=== PATIENT | female | born 1970 | race Caucasian/White ===

== ENCOUNTER 2017-06-18 15:16 | Observation (INO) | payer OTHER ==
[2017-06-18] MEDS ORDERED: Ondansetron 4 MG/2 ML SDV IVPUSH ONE (16:07)
[2017-06-18] MEDS ORDERED: HYDROmorphone 0.5 MG/0.5 ML Syringe IVPUSH ONE ×2 (16:07→18:25)
[2017-06-18] MEDS ORDERED: Sodium Chloride 0.9% 1,000 ML IV SCH (16:15)
[2017-06-18] MEDS ORDERED: Sodium Chloride 0.9% 10 ML Syringe FLUSH PRN (17:26)
[2017-06-18] MEDS ORDERED: Iopamidol 612 MG/ML 100 ML Bottle IV SCH (17:30)
[2017-06-18] MEDS ORDERED: Sodium Chloride 0.9% 80 ML IV SCH (17:30)
--- NOTE | 2017-06-18 18:36 | EDM.PDOC ---
ED HPI GENERAL MEDICAL PROBLEM - General Chief Complaint: Abdominal Pain Stated Complaint: R ABDOMINAL PAIN Time Seen by Provider: 06/18/17 15:40 Source of Information: Reports: Patient History Limitations: Reports: No Limitations - History of Present Illness INITIAL COMMENTS - FREE TEXT/NARRATIVE: 46-year-old female who started developing abdominal pain around 10 AM this morning, as the afternoon has gone on she feels distended, nauseated, and having increased pain. There is some radiation of pain around to her back. She had one bowel movement this morning. She is unable to have emesis because of the past Massiel procedure. She has not had pain like this in the past. She does have a history of several abdominal surgeries including a cholecystectomy, hernia repair. No fevers or chills, no shortness of breath or chest pain. She points to her periumbilical area as the source of pain. Onset: Sudden (Pain started rather suddenly around 10 AM this morning but is increased in intensity) Location: Reports: Abdomen Severity: Moderate Improves with: Reports: None Worsens with: Reports: None Associated Symptoms: Reports: Loss of Appetite, Malaise, Nausea/Vomiting. Denies: Confusion, Fever/Chills Right Abdominal Pain Score (Numeric/FACES): 5 - Related Data Allergies Allergy/AdvReac Type Severity Reaction Status Date / Time prochlorperazine Allergy Other Verified 06/18/17 15:48 [From Compazine] prochlorperazine edisylate Allergy Other Verified 06/18/17 15:48 [From Compazine] prochlorperazine maleate Allergy Other Verified 06/18/17 15:48 [From Compazine] codeine AdvReac Stomach Verified 06/18/17 15:48 Ache metoclopramide HCl AdvReac Hallucinati Verified 06/18/17 15:48 [From Reglan] ons Home Meds: Home Meds Ondansetron [Zofran ODT] 8 mg PO Q8H PRN 02/14/16 [History] Rizatriptan Benzoate [Maxalt] 5 mg PO ASDIRECTED PRN 02/14/16 [History] Albuterol [IJD: Albuterol HFA] 1 - 2 puff IH Q4H PRN 02/16/16 [History] ClonazePAM [KlonoPIN] 1 tab PO QID PRN 06/18/17 [History] DULoxetine [Cymbalta] 90 mg PO DAILY 06/18/17 [History] busPIRone HCl [busPIRone] 1 tab PO BID 06/18/17 [History] lamoTRIgine [Lamictal] 1 tab PO DAILY 06/18/17 [History] Past Medical History HEENT History: Reports: Impaired Vision Other HEENT History: wears glasses Cardiovascular History: Reports: High Cholesterol Respiratory History: Reports: Asthma Gastrointestinal History: Reports: GERD, Hiatal Hernia Genitourinary History: Reports: Other (See Below) Other Genitourinary History: IC bladder [employer] History: Reports: , Prolapsed Uterus Musculoskeletal History: Reports: Fracture Neurological History: Reports: Migraines Psychiatric History: Reports: Anxiety, Depression Dermatologic History: Reports: Other (See Below) Other Dermatologic History: rosacea - Infectious Disease History Infectious Disease History: Reports: Chicken Pox, Shingles - Past Surgical History HEENT Surgical History: Reports: Oral Surgery GI Surgical History: Reports: Cholecystectomy, Colonoscopy, EGD, Hernia Repair/ Other, Massiel Fundoplication Female Surgical History: Reports: Hysterectomy Social & Family History - Family History Family Medical History: Noncontributory - Tobacco Use Smoking Status *Q: Heavy Tobacco Smoker Years of Tobacco use: 15 Packs/Tins Daily: 1 Used Tobacco, but Quit: No Month Tobacco Last Used: Second Hand Smoke Exposure: No - Recreational Drug Use Recreational Drug Use: No ED ROS GENERAL - Review of Systems Review Of Systems: See Below Constitutional: Reports: Malaise. Denies: Fever, Chills HEENT: Reports: No Symptoms Respiratory: Denies: Shortness of Breath Cardiovascular: Denies: Chest Pain GI/Abdominal: Reports: Abdominal Pain, Decreased Appetite, Nausea. Denies: Constipation, Diarrhea, Vomiting : Reports: No Symptoms Musculoskeletal: Reports: No Symptoms Skin: Reports: No Symptoms Neurological: Reports: No Symptoms Psychiatric: Reports: No Symptoms ED EXAM, GI/ABD - Physical Exam Exam: See Below Exam Limited By: No Limitations General Appearance: Alert, No Apparent Distress (Patient appears uncomfortable but not distressed) Eyes: Bilateral: Normal Appearance (No jaundice, normal hydration) Respiratory/Chest: No Respiratory Distress, Lungs Clear Cardiovascular: Regular Rate, Rhythm GI/Abdominal Exam: Soft, Tender, Abnormal Bowel Sounds (Bowel sounds are high- pitched) Extremities: Normal Inspection. No: Pedal Edema Neurological: Alert, Oriented Course - Vital Signs Last Recorded V/S: Last Vital Signs Temp 99.7 F 06/20/17 11:17 Pulse 84 06/20/17 11:17 Resp 16 06/20/17 11:17 BP 137/83 06/20/17 11:17 Pulse Ox 97 06/20/17 11:17 - Orders/Labs/Meds Orders: Medication Orders Acetaminophen (Tylenol) 650 mg PO Q4H PRN PRN Reason: Pain (Mild 1-3)/fever Last Admin: 06/19/17 17:34 Dose: 650 mg Albuterol (Ventolin Hfa) 0 gm INH Q4H PRN PRN Reason: Shortness of Breath Buspirone HCl (Buspar) 30 mg PO BID [facility] Last Admin: 06/20/17 10:32 Dose: Not Given Admin: 06/19/17 20:34 Dose: 30 mg Admin: 06/19/17 10:13 Dose: 30 mg Admin: 06/18/17 21:08 Dose: 30 mg Clonazepam (Klonopin) 0.5 mg PO QID PRN PRN Reason: Anxiety Docusate Sodium (Colace) 100 mg PO BID PRN PRN Reason: Constipation Last Admin: 06/19/17 21:01 Dose: 100 mg Duloxetine HCl (Cymbalta) 90 mg PO DAILY [facility] Last Admin: 06/20/17 10:32 Dose: Not Given Admin: 06/19/17 10:12 Dose: 90 mg Enoxaparin Sodium (Lovenox) 40 mg SUBCUT BEDTIME [facility] Last Admin: 06/19/17 20:33 Dose: 40 mg Hydromorphone HCl (Dilaudid) 2 mg PO Q4H PRN PRN Reason: Pain Last Admin: 06/19/17 16:01 Dose: 2 mg Lamotrigine (Lamotrigine) 100 mg PO DAILY [facility] Last Admin: 06/20/17 10:32 Dose: Not Given Admin: 06/19/17 10:13 Dose: 100 mg Lorazepam (Ativan) 0.5 mg PO Q4H PRN PRN Reason: Nausea Last Admin: 06/19/17 17:34 Dose: 0.5 mg Admin: 06/19/17 11:45 Dose: 0.5 mg Ondansetron HCl (Zofran Odt) 4 mg PO Q4H PRN PRN Reason: Nausea Last Admin: 06/20/17 07:29 Dose: 4 mg Admin: 06/20/17 02:38 Dose: 4 mg Admin: 06/19/17 16:02 Dose: 4 mg Pantoprazole Sodium (Protonix) 40 mg PO ACBREAKFAST IRA Last Admin: 06/20/17 07:24 Dose: 40 mg Zolpidem Tartrate (Ambien) 5 mg PO BEDTIME PRN PRN Reason: Sleep Last Admin: 06/19/17 20:58 Dose: 5 mg Admin: 06/18/17 23:19 Dose: 5 mg Labs: Laboratory Tests 06/18/17 06/18/17 Range/Units 16:17 16:17 WBC 11.3 H (4.5-11.0) K/uL RBC 4.54 (3.30-5.50) M/uL Hgb 14.1 (12.0-15.0) g/dL Hct 41.9 (36.0-48.0) % MCV 92 (80-98) fL MCH 31 (27-31) pg MCHC 34 (32-36) % Plt Count 205 (150-400) K/uL Neut % (Auto) 66 (36-66) % Lymph % (Auto) 21 L (24-44) % Mcpherson % (Auto) 8 H (2-6) % Eos % (Auto) 4 (2-4) % Baso % (Auto) 0 (0-1) % Sodium 142 (140-148) mmol/L Potassium 4.0 (3.6-5.2) mmol/L Chloride 106 (100-108) mmol/L Carbon Dioxide 27 (21-32) mmol/L Anion Gap 9.5 (5.0-14.0) mmol/L BUN 11 (7-18) mg/dL Creatinine 1.0 (0.6-1.0) mg/dL Est Cr Clr Drug Dosing 56.78 mL/min Estimated GFR (MDRD) > 60 (>60) Glucose 108 H (74-106) mg/dL Calcium 8.7 (8.5-10.1) mg/dL Total Bilirubin 0.2 (0.2-1.0) mg/dL AST 12 L (15-37) U/L ALT 22 (12-78) U/L Alkaline Phosphatase 76 (46-116) U/L Total Protein 6.2 L (6.4-8.2) g/dL Albumin 3.4 (3.4-5.0) g/dL Globulin 2.8 (2.3-3.5) g/dL Albumin/Globulin Ratio 1.2 (1.2-2.2) Amylase 111 (25-115) U/L Lipase 479 H (73-393) U/L Meds: Medications Generic Name Dose Route Start Last Admin Trade Name Freq PRN Reason Stop Dose Admin Acetaminophen 650 mg 06/18/17 20:32 06/19/17 17:34 Tylenol PO 650 mg Q4H PRN Administration Pain (Mild 1-3)/fever Albuterol 0 gm 06/18/17 20:32 Ventolin Hfa INH Q4H PRN Shortness of Breath Buspirone HCl 30 mg 06/18/17 21:00 06/20/17 10:32 Buspar PO Not Given BID IRA Clonazepam 0.5 mg 06/18/17 20:32 Klonopin PO QID PRN Anxiety Docusate Sodium 100 mg 06/18/17 20:32 06/19/17 21:01 Colace PO 100 mg BID PRN Administration Constipation Duloxetine HCl 90 mg 06/19/17 09:00 06/20/17 10:32 Cymbalta PO Not Given DAILY IRA Enoxaparin Sodium 40 mg 06/19/17 21:00 06/19/17 20:33 Lovenox SUBCUT 40 mg BEDTIME IRA Administration Hydromorphone HCl 2 mg 06/19/17 10:54 06/19/17 16:01 Dilaudid PO 2 mg Q4H PRN Administration Pain Lamotrigine 100 mg 06/19/17 09:00 06/20/17 10:32 Lamotrigine PO Not Given DAILY IRA Lorazepam 0.5 mg 06/19/17 10:52 06/19/17 17:34 Ativan PO 0.5 mg Q4H PRN Administration Nausea Ondansetron HCl 4 mg 06/19/17 10:53 06/20/17 07:29 Zofran Odt PO 4 mg Q4H PRN Administration Nausea Pantoprazole Sodium 40 mg 06/20/17 07:30 06/20/17 07:24 Protonix PO 40 mg ACBREAKFAST IRA Administration Zolpidem Tartrate 5 mg 06/18/17 20:32 06/19/17 20:58 Ambien PO 5 mg BEDTIME PRN Administration Sleep Discontinued Medications Generic Name Dose Route Start Last Admin Trade Name Freq PRN Reason Stop Dose Admin Bisacodyl 5 mg 06/18/17 20:32 06/18/17 20:49 Dulcolax PO 06/18/17 20:33 5 mg ONETIME ONE Administration Enoxaparin Sodium 40 mg 06/18/17 20:32 06/18/17 21:10 Lovenox SUBCUT 40 mg DAILY IRA Administration Hydromorphone HCl 0.5 mg 06/18/17 16:07 06/18/17 17:16 Dilaudid IVPUSH 06/18/17 16:08 0.5 mg ONETIME ONE Administration Hydromorphone HCl 0.5 mg 06/18/17 18:25 06/18/17 18:29 Dilaudid IVPUSH 06/18/17 18:26 0.5 mg ONETIME ONE Administration Hydromorphone HCl 0 mg 06/18/17 20:32 06/18/17 20:51 Dilaudid Forging Engineer 15 Mg In Ns 30 Ml IV 15 mg ASDIRECTED PRN Administration Pain Protocol Sodium Chloride 1,000 mls @ 500 mls/hr 06/18/17 16:15 06/18/17 17:26 Normal Saline IV 500 mls/hr ASDIRECTED IRA Administration Sodium Chloride 80 mls @ 3 mls/sec 06/18/17 17:30 06/18/17 17:44 Normal Saline IV 3 mls/sec ASDIRECTED IRA Administration Sodium Chloride 1,000 mls @ 125 mls/hr 06/18/17 20:32 06/19/17 02:33 Normal Saline IV 125 mls/hr ASDIRECTED IRA Administration Influenza Virus Vaccine 1 each 06/19/17 10:00 Pharmacy To Dose - Influenza Vaccine IM 06/19/17 10:01 ONETIME ONE Influenza Virus Vaccine 60 mcg 06/19/17 10:00 06/19/17 10:00 Fluzone Quad [id number] IM 06/19/17 10:01 60 mcg .ONCE ONE Administration Iopamidol 100 ml 06/18/17 17:30 06/18/17 17:44 Isovue-300 (61%) IV 100 ml . DIRECTED IRA Administration Lorazepam 1 mg 06/18/17 20:32 06/19/17 04:14 Ativan IV 1 mg Q6H PRN Administration Nausea/Vomiting Naloxone HCl 0.4 mg 06/18/17 20:32 Narcan IVPUSH Q2M PRN Respiratory Distress Naloxone HCl 0.4 mg 06/18/17 20:32 Narcan IVPUSH Q2M PRN Respiratory Distress Ondansetron HCl 4 mg 06/18/17 16:07 06/18/17 17:16 Zofran IVPUSH 06/18/17 16:08 4 mg ONETIME ONE Administration Ondansetron HCl 4 mg 06/18/17 20:32 06/19/17 08:15 Zofran Odt PO 4 mg Q6H PRN Administration Nausea able to take PO Pantoprazole Sodium 40 mg 06/18/17 20:32 06/18/17 20:49 Protonix Iv IVPUSH 40 mg DAILY IRA Administration Pantoprazole Sodium 40 mg 06/19/17 11:30 Protonix Iv IVPUSH DAILY@1130 IRA Sodium Chloride 10 ml 06/18/17 17:26 06/18/17 17:44 Saline Flush FLUSH 10 ml ASDIRECTED PRN Administration Keep Vein Open - Re-Assessments/Exams Free Text/Narrative Re-Assessment/Exam: 06/18/17 18:42 CBC, CMP, amylase and lipase were obtained. IV was started and the patient was given 0.5 mg of IV Dilaudid and 4 mg of Zofran. 06/18/17 18:42 White blood cell count returned slightly elevated at 11.2, lipase was slightly elevated as well. All other labs were reassuring. Patient needed an additional 0.5 mg of Dilaudid IV after returning from the CT scan. A CT of the abdomen and pelvis with IV contrast was obtained to assess for bowel obstruction or pancreatitis, or other pathology. 06/18/17 18:58 CT scan returned with a generalized enteritis but no evidence of high-grade bowel obstruction. No evidence of pancreatitis or appendicitis. I think she'll have to be hospitalized tonight for hydration and pain control to see if this resolves spontaneously. Departure - Departure Time of Disposition: 20:32 Disposition: Admitted As Inpatient 68 Condition: Fair Clinical Impression: Enteritis Abdominal pain Qualifiers: Abdominal location: generalized Qualified Code(s): R10.84 - Generalized abdominal pain - Discharge Information
--- NOTE | 2017-06-18 19:48 | PCM.HP ---
H&P History of Present Illness - General Date of Service: 06/18/17 Admit Problem/Dx: Admission Diagnosis/Problem Admission Diagnosis/Problem Gastroenteritis Source of Information: Patient History Limitations: Reports: No Limitations - History of Present Illness Initial Comments - Free Text/Narative: 46-year-old female who started developing abdominal pain around 10 AM this morning, as the afternoon has gone on she feels distended, nauseated, and having increased pain. There is some radiation of pain around to her back. She had one bowel movement this morning. She is unable to have emesis because of the past Massiel procedure. She has not had pain like this in the past. She does have a history of several abdominal surgeries including a cholecystectomy, hernia repair. No fevers or chills, no shortness of breath or chest pain. She points to her periumbilical area as the source of pain. Onset: Sudden (Pain started rather suddenly around 10 AM this morning but is increased in intensity) Location: Reports: Abdomen Severity: Moderate CBC, CMP, amylase and lipase were obtained. IV was started and the patient was given 0.5 mg of IV Dilaudid and 4 mg of Zofran. White blood cell count returned slightly elevated at 11.2, lipase was slightly elevated as well. All other labs were reassuring. Patient needed an additional 0.5 mg of Dilaudid IV after returning from the CT scan. A CT of the abdomen and pelvis with IV contrast was obtained to assess for bowel obstruction or pancreatitis, or other pathology. CT scan report shows with a generalized enteritis but no evidence of high-grade bowel obstruction. No evidence of pancreatitis or appendicitis. Despite the CT scan showing no high-grade mechanical obstruction, the patient remained fairly symptomatic.Will hospitalized tonight for hydration and pain control to see if this resolves spontaneously. Onset of Symptoms: Reports: Today Symptom Onset Date: 06/18/17 Symptom Onset Time: 10:00 Duration of Symptoms: Reports: Constant, Waxing/Waning Location: Reports: Abdomen Quality: Reports: Sharp, Stabbing Severity: Severe Improves with: Reports: Medication Worsens with: Reports: None Context: Reports: Other (sudden onset of abdominal pain) Associated Symptoms: Reports: Loss of Appetite, Nausea/Vomiting Right Abdominal Pain Score (Numeric/FACES): 5 - Related Data Allergies/Adverse Reactions: Allergies Allergy/AdvReac Type Severity Reaction Status Date / Time prochlorperazine Allergy Other Verified 06/18/17 15:48 [From Compazine] prochlorperazine edisylate Allergy Other Verified 06/18/17 15:48 [From Compazine] prochlorperazine maleate Allergy Other Verified 06/18/17 15:48 [From Compazine] codeine AdvReac Stomach Verified 06/18/17 15:48 Ache metoclopramide HCl AdvReac Hallucinati Verified 06/18/17 15:48 [From Reglan] ons Home Medications: Home Meds Ondansetron [Zofran ODT] 8 mg PO Q8H PRN 02/14/16 [History] Rizatriptan Benzoate [Maxalt] 5 mg PO ASDIRECTED PRN 02/14/16 [History] Albuterol [IJD: Albuterol HFA] 1 - 2 puff IH Q4H PRN 02/16/16 [History] ClonazePAM [KlonoPIN] 1 tab PO QID PRN 06/18/17 [History] DULoxetine [Cymbalta] 90 mg PO DAILY 06/18/17 [History] busPIRone HCl [busPIRone] 1 tab PO BID 06/18/17 [History] lamoTRIgine [Lamictal] 1 tab PO DAILY 06/18/17 [History] Past Medical History HEENT History: Reports: Impaired Vision Other HEENT History: wears glasses Cardiovascular History: Reports: High Cholesterol Respiratory History: Reports: Asthma Gastrointestinal History: Reports: GERD, Hiatal Hernia Genitourinary History: Reports: Other (See Below) Other Genitourinary History: IC bladder 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: , Prolapsed Uterus Musculoskeletal History: Reports: Fracture Neurological History: Reports: Migraines Psychiatric History: Reports: Anxiety, Depression Dermatologic History: Reports: Other (See Below) Other Dermatologic History: rosacea - Infectious Disease History Infectious Disease History: Reports: Chicken Pox, Shingles - Past Surgical History HEENT Surgical History: Reports: Oral Surgery GI Surgical History: Reports: Cholecystectomy, Colonoscopy, EGD, Hernia Repair/ Other, Massiel Fundoplication Female Surgical History: Reports: Hysterectomy Social & Family History - Family History Family Medical History: Noncontributory - Tobacco Use Smoking Status *Q: Heavy Tobacco Smoker Years of Tobacco use: 15 Packs/Tins Daily: 1 Used Tobacco, but Quit: No Month Tobacco Last Used: Second Hand Smoke Exposure: No - Recreational Drug Use Recreational Drug Use: No - Living Situation & Occupation Living situation: Reports: with Significant Other Occupation: Disabled (disabled due to anxiety and depression lives with Boyfriend and his Father by [address] [place], [place].) H&P Review of Systems - Review of Systems: Review Of Systems: See Below General: Reports: Fatigue, Decreased Appetite, Other (abdominal pain with nausea ) HEENT: Reports: No Symptoms Pulmonary: Reports: No Symptoms Cardiovascular: Reports: No Symptoms Gastrointestinal: Reports: Abdominal Pain, Constipation (last bowel movement 3 days ago), Nausea (unable to vomit due to Massiel procedure) Genitourinary: Reports: No Symptoms Musculoskeletal: Reports: No Symptoms Skin: Reports: No Symptoms Psychiatric: Reports: No Symptoms Neurological: Reports: No Symptoms Hematologic/Lymphatic: Reports: No Symptoms Immunologic: Reports: No Symptoms Exam - Exam Exam: See Below - Vital Signs Vital Signs: Last Vital Signs Temp 36.6 C 06/18/17 19:27 Pulse 97 06/18/17 19:27 Resp 18 06/18/17 19:27 BP 153/72 H 06/18/17 19:27 Pulse Ox 93 L 06/18/17 19:27 Weight: 75.2 kg - Exam General: Alert, Oriented, Cooperative, Sedated HEENT: PERRLA, Hearing Intact, Mucosa Moist & [place], Nares Patent, Normal Nasal Septum, Posterior Pharynx Clear, Conjunctiva Clear, EOMI, EACs Clear, TMs Clear Neck: Supple, Trachea Midline, 2 Lungs: Clear to Auscultation, Normal Respiratory Effort Cardiovascular: Regular Rate, Regular Rhythm GI/Abdominal Exam: Soft, No Distention, No Abnormal Bruit, No Mass, Tender (low abdomen and to right , rug, rlq. no rebound or guarding) (Female) Exam: Deferred Rectal (Female) Exam: Deferred Back Exam: Normal Inspection, Full Range of Motion, NT Extremities: Normal Inspection, Normal Range of Motion, Non-Tender, No Pedal Edema, Normal Capillary Refill Skin: Warm, Dry, Intact Neurological: Cranial Nerves Intact, Reflexes Equal Bilateral Neuro Extensive - Mental Status: Alert, Oriented x3, Normal Mood/Affect, Normal Cognition Neuro Extensive - Motor, Sensory, Reflexes: CN II-XII Intact, Normal Reflexes Psychiatric: Alert, Normal Affect, Normal Mood - Patient Data Lab Results Last 24 hrs: Laboratory Results - last 24 hr 06/18/17 06/18/17 Range/Units 16:17 16:17 WBC 11.3 H (4.5-11.0) K/uL RBC 4.54 (3.30-5.50) M/uL Hgb 14.1 (12.0-15.0) g/dL Hct 41.9 (36.0-48.0) % MCV 92 (80-98) fL MCH 31 (27-31) pg MCHC 34 (32-36) % Plt Count 205 (150-400) K/uL Neut % (Auto) 66 (36-66) % Lymph % (Auto) 21 L (24-44) % [place] % (Auto) 8 H (2-6) % Eos % (Auto) 4 (2-4) % Baso % (Auto) 0 (0-1) % Sodium 142 (140-148) mmol/L Potassium 4.0 (3.6-5.2) mmol/L Chloride 106 (100-108) mmol/L Carbon Dioxide 27 (21-32) mmol/L Anion Gap 9.5 (5.0-14.0) mmol/L BUN 11 (7-18) mg/dL Creatinine 1.0 (0.6-1.0) mg/dL Est Cr Clr Drug Dosing 56.78 mL/min Estimated GFR (MDRD) > 60 (>60) Glucose 108 H (74-106) mg/dL Calcium 8.7 (8.5-10.1) mg/dL Total Bilirubin 0.2 (0.2-1.0) mg/dL AST 12 L (15-37) U/L ALT 22 (12-78) U/L Alkaline Phosphatase 76 (46-116) U/L Total Protein 6.2 L (6.4-8.2) g/dL Albumin 3.4 (3.4-5.0) g/dL Globulin 2.8 (2.3-3.5) g/dL Albumin/Globulin Ratio 1.2 (1.2-2.2) Amylase 111 (25-115) U/L Lipase 479 H (73-393) U/L Result Diagrams: 06/18/17 16:17 06/18/17 16:17 *Q Meaningful Use (ADM) - VTE *Q VTE Criteria *Q: - Stroke *Q Stroke Criteria *Q: - AMI *Q AMI Criteria *Q: - Problem List (1) Tobacco use SNOMED Code(s): 943214534 ICD Code: Z72.0 - TOBACCO USE Status: Acute Priority: High Current Visit: Yes (2) Abdominal pain SNOMED Code(s): 80647485 ICD Code: R10.9 - UNSPECIFIED ABDOMINAL PAIN Status: Acute Priority: High Current Visit: Yes Qualifiers: Abdominal location: generalized Qualified Code(s): R10.84 - Generalized abdominal pain (3) Enteritis SNOMED Code(s): 78980753 ICD Code: K52.9 - NONINFECTIVE GASTROENTERITIS AND COLITIS, UNSPECIFIED Status: Acute Priority: High Current Visit: Yes (4) Anxiety and depression SNOMED Code(s): 760223673 ICD Code: F41.8 - OTHER SPECIFIED ANXIETY DISORDERS Status: Acute Priority: Medium Current Visit: Yes Problem List Initiated/Reviewed/Updated: Yes Orders Last 24hrs: Active Orders 24 hr Category Date Time Status Patient Status Manage Transfer [TRANSFER] Routine ADT 06/18/17 19:33 Ordered Abdomen Pelvis w Cont [CT] Stat Exams 06/18/17 17:14 Taken Iopamidol [Isovue-300 (61%)] Med 06/18/17 17:30 Active 100 ml IV . DIRECTED Sodium Chloride 0.9% [Normal Saline] 1,000 ml Med 06/18/17 16:15 Active IV ASDIRECTED Sodium Chloride 0.9% [Normal Saline] 80 ml Med 06/18/17 17:30 Active IV ASDIRECTED Sodium Chloride 0.9% [Saline Flush] Med 06/18/17 17:26 Active 10 ml FLUSH ASDIRECTED PRN Resuscitation Status Routine Resus Stat 06/18/17 19:34 Ordered Medication Orders Sodium Chloride (Normal Saline) 1,000 mls @ 500 mls/hr IV ASDIRECTED IRA Last Admin: 06/18/17 17:26 Dose: 500 mls/hr Sodium Chloride (Normal Saline) 80 mls @ 3 mls/sec IV ASDIRECTED IRA Last Admin: 06/18/17 17:44 Dose: 3 mls/sec Iopamidol (Isovue-300 (61%)) 100 ml IV . DIRECTED [facility] Last Admin: 06/18/17 17:44 Dose: 100 ml Sodium Chloride (Saline Flush) 10 ml FLUSH ASDIRECTED PRN PRN Reason: Keep Vein Open Last Admin: 06/18/17 17:44 Dose: 10 ml Assessment/Plan Comment:: ASSESSMENT / PLAN -46-year-old female who started developing abdominal pain around 10 AM this morning, as the afternoon has gone on she feels distended, nauseated, and having increased pain. There is some radiation of pain around to her back. She had one bowel movement this morning. She is unable to have emesis because of the past Massiel procedure. She has not had pain like this in the past. She does have a history of several abdominal surgeries including a cholecystectomy, hernia repair. No fevers or chills, no shortness of breath or chest pain. She points to her periumbilical area as the source of pain. Onset: Sudden (Pain started rather suddenly around 10 AM this morning but is increased in intensity) Location: Reports: Abdomen Severity: Moderate CBC, CMP, amylase and lipase were obtained. IV was started and the patient was given 0.5 mg of IV Dilaudid and 4 mg of Zofran. White blood cell count returned slightly elevated at 11.2, lipase was slightly elevated as well. All other labs were reassuring. Patient needed an additional 0.5 mg of Dilaudid IV after returning from the CT scan. A CT of the abdomen and pelvis with IV contrast was obtained to assess for bowel obstruction or pancreatitis, or other pathology. CT scan report shows with a generalized enteritis but no evidence of high-grade bowel obstruction. No evidence of pancreatitis or appendicitis. Despite the CT scan showing no high-grade mechanical obstruction, the patient remained fairly symptomatic.Will hospitalized tonight for hydration and pain control to see if this resolves spontaneously. Plan Gastroenteritis, abdominal pain -Admit Observation to [address] [place] [address] for further monitoring -Lipase 479, concerns for early pancreatitis, will repeat in am. -IV fluids for rehydration NS at 125 mL per hour -abdominal pain; [employer] Dilaudid per protocol -IV Zofran every 8 hr prn -IV Protonix 40mg once -concerns for constipation, last BM 3 days ago; give Ducolax 5mg po once -Advise to notify nurses of any worsen abdominal pain or other symptoms -And a.m. labs: CBC, BMP, amylase and lipase Anxiety -order home medications without changes Tobacco use -smokes one to one and half packs per day -declines Nicotine patch -albuterol inhaler 2 puffs every 4 hours prn Maintenance issues -Orders home meds: -Nutrition: Regular diet -Torres catheter not indicated at this time -DVT: Lovenox 40mg subcut once -GI Prophalaxis;IV Protonix 40mg -spiritual consult for prayers for health CODE STATUS: Full Admission status: Admit to Observation -I expect this patient to stay less than 24 hours, not to exceed 96 hours for evaluation and management of this problem. Disposition: home with family Primary care provider: Jassi March PA-c Hospitalist: Dr. Manzo
[2017-06-18] MEDS ORDERED: Naloxone 0.4 MG/ML SDV IVPUSH PRN ×2 (20:32)
[2017-06-18] MEDS ORDERED: Enoxaparin 40 MG/0.4 ML Syringe SUBCUT SCH (20:32)
[2017-06-18] MEDS ORDERED: Bisacodyl 5 MG Tab PO ONE (20:32)
[2017-06-18] MEDS ORDERED: Acetaminophen 325 MG Tab PO PRN (20:32)
[2017-06-18] MEDS ORDERED: HYDROmorphone/Normal Saline 15 MG/30 ML PCA IV PRN (20:32)
[2017-06-18] MEDS ORDERED: Albuterol 8 GM Inhaler INH PRN (20:32)
[2017-06-18] MEDS ORDERED: Docusate Sodium 100 MG Cap PO PRN (20:32)
[2017-06-18] MEDS ORDERED: Pantoprazole 40 MG Vial IVPUSH SCH (20:32)
[2017-06-18] MEDS ORDERED: ClonazePAM 0.5 MG Tab PO PRN (20:32)
[2017-06-18] MEDS: Sodium Chloride 0.9% 1,000 ML IV SCH (20:45)
[2017-06-18] MEDS: LORazepam 2 MG/ML MDV IV PRN (20:49)
[2017-06-18] MEDS: busPIRone 10 MG Tab PO SCH (21:08)
[2017-06-18] MEDS ORDERED: FLU Vacc QS 2017-18 (36mos UP)/PF 60 MCG/0.5 ML Syringe IM ONE (21:45)
[2017-06-18] MEDS: Zolpidem 5 MG Tab PO PRN (23:19)
[2017-06-19] MEDS: Ondansetron 4 MG Tab.DIS PO PRN ×3 (01:46→16:02)
[2017-06-19] MEDS: Sodium Chloride 0.9% 1,000 ML IV SCH (02:33)
[2017-06-19] MEDS: LORazepam 2 MG/ML MDV IV PRN (04:14)
[2017-06-19] MEDS ORDERED: FLU Vacc QS 2017-18 (36mos UP)/PF 60 MCG/0.5 ML Syringe IM ONE (10:00)
[2017-06-19] MEDS: DULoxetine 30 MG Cap PO SCH (10:12)
[2017-06-19] MEDS: busPIRone 10 MG Tab PO SCH ×2 (10:13→20:34)
[2017-06-19] MEDS: lamoTRIgine 100 MG Tab PO SCH (10:13)
[2017-06-19] MEDS ORDERED: HYDROmorphone 2 MG Tab PO PRN (10:54)
--- NOTE | 2017-06-19 11:00 | PCM.PN ---
- General Info Date of Service: 06/19/17 Subjective Update: Ms. Evans is a 46-year-old woman who was admitted through the emergency department observation status last night because of nausea vomiting and abdominal pain secondary to gastroenteritis. She has been afebrile and her labs were unremarkable with stable vital signs. CT scan of the abdomen did document intestinal inflammation but no other significant abnormalities. She is been given IV fluids pain medication and antiemetic therapy, continues to have symptoms of some cramping abdominal pain with nausea. She has tolerated liquids today and has been passing a small amount of gas. - Review of Systems General: Reports: Weakness. Denies: Fever, Chills Pulmonary: Reports: No Symptoms Cardiovascular: Reports: No Symptoms Gastrointestinal: Reports: Abdominal Pain, Decreased Appetite, Flatus, Nausea. Denies: Difficulty Swallowing, Hematochezia, Melena, Vomiting Psychiatric: Reports: Anxiety - Patient Data Vitals - Most Recent: Last Vital Signs Temp 96.8 F 06/19/17 07:24 Pulse 103 H 06/19/17 07:24 Resp 14 06/19/17 07:24 BP 123/81 06/19/17 07:24 Pulse Ox 96 06/19/17 07:26 Weight - Most Recent: 165 lb 9.074 oz I&O - Last 24 Hours: Intake & Output 06/18/17 06/19/17 06/19/17 22:59 06:59 14:59 Intake Total 180 1461 Output Total 300 Balance 180 1461 -300 Lab Results Last 24 Hours: Laboratory Results - last 24 hr 06/19/17 06/19/17 06/19/17 Range/Units 04:33 04:33 04:33 WBC 8.9 (4.5-11.0) K/uL RBC 4.16 (3.30-5.50) M/uL Hgb 12.8 (12.0-15.0) g/dL Hct 39.9 (36.0-48.0) % MCV 96 (80-98) fL MCH 31 (27-31) pg MCHC 32 (32-36) % Plt Count 169 (150-400) K/uL Neut % (Auto) 65 (36-66) % Lymph % (Auto) 24 (24-44) % [place] % (Auto) 10 H (2-6) % Eos % (Auto) 2 (2-4) % Baso % (Auto) 0 (0-1) % Sodium 141 (140-148) mmol/L Potassium 4.2 (3.6-5.2) mmol/L Chloride 107 (100-108) mmol/L Carbon Dioxide 28 (21-32) mmol/L Anion Gap 6.1 (5.0-14.0) mmol/L BUN 7 (7-18) mg/dL Creatinine 0.8 (0.6-1.0) mg/dL Est Cr Clr Drug Dosing 70.98 mL/min Estimated GFR (MDRD) > 60 (>60) Glucose 131 H (74-106) mg/dL Calcium 8.0 L (8.5-10.1) mg/dL Amylase 57 (25-115) U/L Lipase 304 (73-393) U/L Med Orders - Current: Current Medications Acetaminophen (Tylenol) 650 mg PO Q4H PRN PRN Reason: Pain (Mild 1-3)/fever Albuterol (Ventolin Hfa) 0 gm INH Q4H PRN PRN Reason: Shortness of Breath Buspirone HCl (Buspar) 30 mg PO BID [facility] Last Admin: 06/19/17 10:13 Dose: 30 mg Clonazepam (Klonopin) 0.5 mg PO QID PRN PRN Reason: Anxiety Docusate Sodium (Colace) 100 mg PO BID PRN PRN Reason: Constipation Duloxetine HCl (Cymbalta) 90 mg PO DAILY [facility] Last Admin: 06/19/17 10:12 Dose: 90 mg Enoxaparin Sodium (Lovenox) 40 mg SUBCUT BEDTIME [facility] Hydromorphone HCl (Dilaudid) 2 mg PO Q4H PRN PRN Reason: Pain Lamotrigine (Lamotrigine) 100 mg PO DAILY [facility] Last Admin: 06/19/17 10:13 Dose: 100 mg Lorazepam (Ativan) 0.5 mg PO Q4H PRN PRN Reason: Nausea Ondansetron HCl (Zofran Odt) 4 mg PO Q4H PRN PRN Reason: Nausea Pantoprazole Sodium (Protonix) 40 mg PO DAILY [facility] Zolpidem Tartrate (Ambien) 5 mg PO BEDTIME PRN PRN Reason: Sleep Last Admin: 06/18/17 23:19 Dose: 5 mg Discontinued Medications Bisacodyl (Dulcolax) 5 mg PO ONETIME ONE Stop: 06/18/17 20:33 Last Admin: 06/18/17 20:49 Dose: 5 mg Enoxaparin Sodium (Lovenox) 40 mg SUBCUT DAILY [facility] Last Admin: 06/18/17 21:10 Dose: 40 mg Hydromorphone HCl (Dilaudid) 0.5 mg IVPUSH ONETIME ONE Stop: 06/18/17 16:08 Last Admin: 06/18/17 17:16 Dose: 0.5 mg Hydromorphone HCl (Dilaudid) 0.5 mg IVPUSH ONETIME ONE Stop: 06/18/17 18:26 Last Admin: 06/18/17 18:29 Dose: 0.5 mg Hydromorphone HCl (Dilaudid [employer]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 30 Ml) 0 mg IV ASDIRECTED PRN; Protocol PRN Reason: Pain Last Admin: 06/18/17 20:51 Dose: 15 mg Sodium Chloride (Normal Saline) 1,000 mls @ 500 mls/hr IV ASDIRECTED [facility] Last Admin: 06/18/17 17:26 Dose: 500 mls/hr Sodium Chloride (Normal Saline) 80 mls @ 3 mls/sec IV ASDIRECTED [facility] Last Admin: 06/18/17 17:44 Dose: 3 mls/sec Sodium Chloride (Normal Saline) 1,000 mls @ 125 mls/hr IV ASDIRECTED [facility] Last Admin: 06/19/17 02:33 Dose: 125 mls/hr Influenza Virus Vaccine (Pharmacy To Dose - Influenza Vaccine) 1 each IM ONETIME ONE Stop: 06/19/17 10:01 Influenza Virus Vaccine (Fluzone Quad 1379-4075) 60 mcg IM .ONCE ONE Stop: 06/19/17 10:01 Last Admin: 06/19/17 10:00 Dose: 60 mcg Iopamidol (Isovue-300 (61%)) 100 ml IV . DIRECTED [facility] Last Admin: 06/18/17 17:44 Dose: 100 ml Lorazepam (Ativan) 1 mg IV Q6H PRN PRN Reason: Nausea/Vomiting Last Admin: 06/19/17 04:14 Dose: 1 mg Naloxone HCl (Narcan) 0.4 mg IVPUSH Q2M PRN PRN Reason: Respiratory Distress Naloxone HCl (Narcan) 0.4 mg IVPUSH Q2M PRN PRN Reason: Respiratory Distress Ondansetron HCl (Zofran) 4 mg IVPUSH ONETIME ONE Stop: 06/18/17 16:08 Last Admin: 06/18/17 17:16 Dose: 4 mg Ondansetron HCl (Zofran Odt) 4 mg PO Q6H PRN PRN Reason: Nausea able to take PO Last Admin: 06/19/17 08:15 Dose: 4 mg Pantoprazole Sodium (Protonix Iv) 40 mg IVPUSH DAILY [facility] Last Admin: 06/18/17 20:49 Dose: 40 mg Pantoprazole Sodium (Protonix Iv) 40 mg IVPUSH DAILY@1130 IRA Sodium Chloride (Saline Flush) 10 ml FLUSH ASDIRECTED PRN PRN Reason: Keep Vein Open Last Admin: 06/18/17 17:44 Dose: 10 ml - Exam Quality Assessment: DVT Prophylaxis General: Alert, Oriented, Cooperative, Mild Distress Lungs: Clear to Auscultation, Normal Respiratory Effort Cardiovascular: Regular Rate, Regular Rhythm, No Murmurs GI/Abdominal Exam: Normal Bowel Sounds, Soft, Non-Tender, No Organomegaly, No Distention Extremities: Non-Tender, No Pedal Edema Skin: Warm, Dry - Problem List Review Problem List Initiated/Reviewed/Updated: Yes - My Orders Last 24 Hours: My Active Orders 06/19/17 10:52 LORazepam [Ativan] 0.5 mg PO Q4H PRN 06/19/17 10:53 Ondansetron [Zofran ODT] 4 mg PO Q4H PRN 06/19/17 10:54 HYDROmorphone [Dilaudid] 2 mg PO Q4H PRN Convert IV to Saline Lock [OM.PC] Routine 06/20/17 09:00 Pantoprazole [ProTONIX] 40 mg PO DAILY - Plan Plan:: ASSESSMENT / PLAN Gastroenteritis, abdominal pain-continued symptoms despite current therapy, lipase level has normalized -Saline lock IV -Pain medication and antiemetic therapy as needed -Protonix 40 mg by mouth daily -Encourage oral intake of fluids Anxiety -order home medications without changes Tobacco use -smokes one to one and half packs per day -declines Nicotine patch -albuterol inhaler 2 puffs every 4 hours prn Maintenance issues -Orders home meds: -Nutrition: Regular diet -Torres catheter not indicated at this time -DVT: Lovenox 40mg subcut once -GI Prophalaxis;IV Protonix 40mg -spiritual consult for prayers for health CODE STATUS: Full Admission status: Admit to Observation -I expect this patient to stay less than 24 hours, not to exceed 96 hours for evaluation and management of this problem. Disposition: Anticipate discharge tomorrow Primary care provider: Jassi March PA-c Hospitalist: Dr. Manzo
[2017-06-19] MEDS ORDERED: Pantoprazole 40 MG Vial IVPUSH SCH (11:30)
[2017-06-19] MEDS: LORazepam 0.5 MG Tab PO PRN ×2 (11:45→17:34)
[2017-06-19] MEDS: Zolpidem 5 MG Tab PO PRN (20:58)
[2017-06-19] MEDS ORDERED: Enoxaparin 40 MG/0.4 ML Syringe SUBCUT SCH (21:00)
[2017-06-20] MEDS: Ondansetron 4 MG Tab.DIS PO PRN ×2 (02:38→07:29)
[2017-06-20] MEDS ORDERED: Pantoprazole 40 MG Tab.CR PO SCH (07:30)
[2017-06-20] MEDS: DULoxetine 30 MG Cap PO SCH (10:32)
[2017-06-20] MEDS: busPIRone 10 MG Tab PO SCH (10:32)
[2017-06-20] MEDS: lamoTRIgine 100 MG Tab PO SCH (10:32)
[2017-06-20 11:19] VITALS: BP 137/83
--- NOTE | 2017-06-20 12:53 | PCM.DCSUM1 ---
Discharge Summary - Hospital Course Brief History: This patient is a 46-year-old woman who was admitted through the emergency department to [facility] status with generalized abdominal pain, nausea, and vomiting secondary to enteritis. - Discharge Data Discharge Date: 06/20/17 Discharge Disposition: Home, Self-Care 01 Condition: Good - Discharge Diagnosis/Problem(s) (1) Abdominal pain SNOMED Code(s): 55675279 ICD Code: R10.9 - UNSPECIFIED ABDOMINAL PAIN Status: Acute Priority: High Current Visit: Yes Qualifiers: Abdominal location: generalized Qualified Code(s): R10.84 - Generalized abdominal pain (2) Enteritis SNOMED Code(s): 07258691 ICD Code: K52.9 - NONINFECTIVE GASTROENTERITIS AND COLITIS, UNSPECIFIED Status: Acute Priority: High Current Visit: Yes - Patient Summary/Data Consults: Consultations 06/18/17 20:32 Consult to Spiritual Care [CONS] Routine Hospital Course: Ms. Evans is a 46-year-old woman who developed symptoms of abdominal pain, nausea , and vomiting on the morning of admission. Symptoms progressed through the day and she presented to the emergency department for further evaluation. Laboratory studies, showed a modest elevation in white blood cell count but otherwise were unremarkable. CT scan of the abdomen and pelvis was obtained which showed diffuse small bowel inflammation, but no other significant abnormalities. She was felt to have probable enteritis causing her current symptoms. She was admitted to the hospital and given IV fluids for hydration as well as antiemetic therapy and pain medications. By the following day she was only modestly improved and continued to experience abdominal pain and nausea. After an additional 24 hours of hospitalization she felt significantly improved with no residual abdominal pain and marked improvement in her nausea. Activity will be as tolerated and she will resume her usual diet. Follow-up appointment will be scheduled with her primary care provider within one week. - Patient Instructions Diet: Usual Diet as Tolerated Activity: As Tolerated Other/Special Instructions: Please schedule follow-up appointment with primary care provider within one week. - Discharge Plan Prescriptions/Med Rec: Ondansetron [Zofran ODT] 4 mg PO Q4H #12 tab.dis Home Medications: Home Meds Rizatriptan Benzoate [Maxalt] 5 mg PO ASDIRECTED PRN 02/14/16 [History] Albuterol [IJD: Albuterol HFA] 1 - 2 puff IH Q4H PRN 02/16/16 [History] ClonazePAM [KlonoPIN] 1 tab PO QID PRN 06/18/17 [History] DULoxetine [Cymbalta] 90 mg PO DAILY 06/18/17 [History] busPIRone HCl [busPIRone] 1 tab PO BID 06/18/17 [History] lamoTRIgine [Lamictal] 1 tab PO DAILY 06/18/17 [History] Ondansetron [Zofran ODT] 4 mg PO Q4H #12 tab.dis 06/20/17 [Rx] Referrals: Jassi March PA [Primary Care Provider] - - Patient Data Vitals - Most Recent: Last Vital Signs Temp 99.7 F 06/20/17 11:17 Pulse 84 06/20/17 11:17 Resp 16 06/20/17 11:17 BP 137/83 06/20/17 11:17 Pulse Ox 97 06/20/17 11:17 Weight - Most Recent: 165 lb 9.074 oz I&O - Last 24 hours: Intake & Output 06/19/17 06/20/17 06/20/17 22:59 06:59 14:59 Intake Total 480 180 Balance 480 180 Med Orders - Current: Current Medications Acetaminophen (Tylenol) 650 mg PO Q4H PRN PRN Reason: Pain (Mild 1-3)/fever Last Admin: 06/19/17 17:34 Dose: 650 mg Albuterol (Ventolin Hfa) 0 gm INH Q4H PRN PRN Reason: Shortness of Breath Buspirone HCl (Buspar) 30 mg PO BID [facility] Last Admin: 06/20/17 10:32 Dose: Not Given Clonazepam (Klonopin) 0.5 mg PO QID PRN PRN Reason: Anxiety Docusate Sodium (Colace) 100 mg PO BID PRN PRN Reason: Constipation Last Admin: 06/19/17 21:01 Dose: 100 mg Duloxetine HCl (Cymbalta) 90 mg PO DAILY [facility] Last Admin: 06/20/17 10:32 Dose: Not Given Enoxaparin Sodium (Lovenox) 40 mg SUBCUT BEDTIME [facility] Last Admin: 06/19/17 20:33 Dose: 40 mg Hydromorphone HCl (Dilaudid) 2 mg PO Q4H PRN PRN Reason: Pain Last Admin: 06/19/17 16:01 Dose: 2 mg Lamotrigine (Lamotrigine) 100 mg PO DAILY [facility] Last Admin: 06/20/17 10:32 Dose: Not Given Lorazepam (Ativan) 0.5 mg PO Q4H PRN PRN Reason: Nausea Last Admin: 06/19/17 17:34 Dose: 0.5 mg Ondansetron HCl (Zofran Odt) 4 mg PO Q4H PRN PRN Reason: Nausea Last Admin: 06/20/17 07:29 Dose: 4 mg Pantoprazole Sodium (Protonix) 40 mg PO ACBREAKFAST [facility] Last Admin: 06/20/17 07:24 Dose: 40 mg Zolpidem Tartrate (Ambien) 5 mg PO BEDTIME PRN PRN Reason: Sleep Last Admin: 06/19/17 20:58 Dose: 5 mg Discontinued Medications Bisacodyl (Dulcolax) 5 mg PO ONETIME ONE Stop: 06/18/17 20:33 Last Admin: 06/18/17 20:49 Dose: 5 mg Enoxaparin Sodium (Lovenox) 40 mg SUBCUT DAILY [facility] Last Admin: 06/18/17 21:10 Dose: 40 mg Hydromorphone HCl (Dilaudid) 0.5 mg IVPUSH ONETIME ONE Stop: 06/18/17 16:08 Last Admin: 06/18/17 17:16 Dose: 0.5 mg Hydromorphone HCl (Dilaudid) 0.5 mg IVPUSH ONETIME ONE Stop: 06/18/17 18:26 Last Admin: 06/18/17 18:29 Dose: 0.5 mg Hydromorphone HCl (Dilaudid Intake Man 15 Mg In Ns 30 Ml) 0 mg IV ASDIRECTED PRN; Protocol PRN Reason: Pain Last Admin: 06/18/17 20:51 Dose: 15 mg Sodium Chloride (Normal Saline) 1,000 mls @ 500 mls/hr IV ASDIRECTED IRA Last Admin: 06/18/17 17:26 Dose: 500 mls/hr Sodium Chloride (Normal Saline) 80 mls @ 3 mls/sec IV ASDIRECTED IRA Last Admin: 06/18/17 17:44 Dose: 3 mls/sec Sodium Chloride (Normal Saline) 1,000 mls @ 125 mls/hr IV ASDIRECTED [facility] Last Admin: 06/19/17 02:33 Dose: 125 mls/hr Influenza Virus Vaccine (Pharmacy To Dose - Influenza Vaccine) 1 each IM ONETIME ONE Stop: 06/19/17 10:01 Influenza Virus Vaccine (Fluzone Quad [id number]) 60 mcg IM .ONCE ONE Stop: 06/19/17 10:01 Last Admin: 06/19/17 10:00 Dose: 60 mcg Iopamidol (Isovue-300 (61%)) 100 ml IV . DIRECTED [facility] Last Admin: 06/18/17 17:44 Dose: 100 ml Lorazepam (Ativan) 1 mg IV Q6H PRN PRN Reason: Nausea/Vomiting Last Admin: 06/19/17 04:14 Dose: 1 mg Naloxone HCl (Narcan) 0.4 mg IVPUSH Q2M PRN PRN Reason: Respiratory Distress Naloxone HCl (Narcan) 0.4 mg IVPUSH Q2M PRN PRN Reason: Respiratory Distress Ondansetron HCl (Zofran) 4 mg IVPUSH ONETIME ONE Stop: 06/18/17 16:08 Last Admin: 06/18/17 17:16 Dose: 4 mg Ondansetron HCl (Zofran Odt) 4 mg PO Q6H PRN PRN Reason: Nausea able to take PO Last Admin: 06/19/17 08:15 Dose: 4 mg Pantoprazole Sodium (Protonix Iv) 40 mg IVPUSH DAILY [facility] Last Admin: 06/18/17 20:49 Dose: 40 mg Pantoprazole Sodium (Protonix Iv) 40 mg IVPUSH DAILY@1130 [facility] Sodium Chloride (Saline Flush) 10 ml FLUSH ASDIRECTED PRN PRN Reason: Keep Vein Open Last Admin: 06/18/17 17:44 Dose: 10 ml *Q Meaningful Use (DIS) - VTE *Q VTE Criteria *Q: - Stroke *Q Stroke Criteria *Q: - AMI *Q AMI Criteria *Q:
== END 2017-06-20 13:26 | disposition home or self-care (01) ==
LOC: JP.ED 15:16 → JP.MS 19:33
PROVIDERS: ADMIT Hospitalist; ATTEND Hospitalist
DX: K52.9 Noninfective gastroenteritis and colitis, unspecified (principal); R10.84 Generalized abdominal pain; E78.00 Pure hypercholesterolemia, unspecified; J45.909 Unspecified asthma, uncomplicated; K21.9 Gastro-esophageal reflux disease without esophagitis; F41.8 Other specified anxiety disorders; Z88.8 Allergy status to other drugs, medicaments and biological substances; Z79.899 Other long term (current) drug therapy; Z90.49 Acquired absence of other specified parts of digestive tract; Z90.710 Acquired absence of both cervix and uterus; Z72.0 Tobacco use
CPT/HCPCS: 36415; 74177; 80048; 80053; 82150; 83690; 85025; 96361; 96374; 96375; 96376; 99285; A9270; C9113; J1170; J1650; J2060; J2405; J7030; J7040; J7050; Q9967; 90686; 96372; G0008; G0378

== ENCOUNTER 2017-10-23 09:31 | Emergency (ER) | payer OTHER ==
[2017-10-23 09:49] VITALS: BP 144/87
--- NOTE | 2017-10-23 10:08 | EDM.PDOC ---
ED HPI GENERAL MEDICAL PROBLEM - General Chief Complaint: Gastrointestinal Problem Stated Complaint: ABDOMINAL PAIN Time Seen by Provider: 10/23/17 10:08 Source of Information: Reports: Patient History Limitations: Reports: No Limitations - History of Present Illness INITIAL COMMENTS - FREE TEXT/NARRATIVE: pt has had diarrhea for 1.5 weeks. She has about 4 stools per day and she has been nauseated but can,t vomit because has had a alessia. She has not noted blood in the stols and she has not robert on recent antibiotics. She has had pain in the upper abdoman. Onset: Gradual, Other ( pain in the past 2-3 days. ) Duration: Day(s):, Other (pt has had sig diarrhea. ) Location: Reports: Abdomen Abdomen Pain Score (Numeric/FACES): 6 - Related Data Allergies Allergy/AdvReac Type Severity Reaction Status Date / Time prochlorperazine maleate Allergy Other Verified 10/23/17 09:49 [From Compazine] codeine AdvReac Stomach Verified 10/23/17 09:49 Ache metoclopramide HCl AdvReac Hallucinati Verified 10/23/17 09:49 [From Reglan] ons Home Meds: Home Meds Rizatriptan Benzoate [Maxalt] 5 mg PO ASDIRECTED PRN 02/14/16 [History] Albuterol [IJD: Albuterol HFA] 1 - 2 puff IH Q4H PRN 02/16/16 [History] ClonazePAM [KlonoPIN] 1 tab PO BID PRN 06/18/17 [History] busPIRone HCl [busPIRone] 1 tab PO BID 06/18/17 [History] Escitalopram [Lexapro] 20 mg PO DAILY 10/23/17 [History] Ondansetron [Zofran ODT] 8 mg PO Q4H PRN 10/23/17 [History] Past Medical History HEENT History: Reports: Impaired Vision Other HEENT History: wears glasses Cardiovascular History: Reports: High Cholesterol Respiratory History: Reports: Asthma Gastrointestinal History: Reports: GERD, Hiatal Hernia Genitourinary History: Reports: Other (See Below) Other Genitourinary History: IC bladder [employer] History: Reports: , Prolapsed Uterus Musculoskeletal History: Reports: Fracture Other Musculoskeletal History: hx tibia on rt leg and nose fractures Neurological History: Reports: Migraines Psychiatric History: Reports: Anxiety, Depression Endocrine/Metabolic History: Reports: Obesity/BMI 30+ Dermatologic History: Reports: Other (See Below) Other Dermatologic History: rosacea - Infectious Disease History Infectious Disease History: Reports: Chicken Pox, Shingles - Past Surgical History HEENT Surgical History: Reports: Oral Surgery GI Surgical History: Reports: Cholecystectomy, Colonoscopy, EGD, Hernia Repair/ Other, Massiel Fundoplication Female Surgical History: Reports: Hysterectomy Social & Family History - Family History Family Medical History: Noncontributory - Tobacco Use Smoking Status *Q: Heavy Tobacco Smoker Years of Tobacco use: 15 Packs/Tins Daily: 1 Used Tobacco, but Quit: No Month/Year Tobacco Last Used: Second Hand Smoke Exposure: No - Caffeine Use Caffeine Use: Reports: Soda - Recreational Drug Use Recreational Drug Use: No - Living Situation & Occupation Living situation: Reports: with Significant Other Occupation: Disabled (disabled due to anxiety and depression lives with Boyfriend and his Father by [place], [place].) ED ROS GENERAL - Review of Systems Review Of Systems: See Below Constitutional: Reports: No Symptoms HEENT: Reports: No Symptoms Respiratory: Reports: No Symptoms Cardiovascular: Reports: No Symptoms Endocrine: Reports: No Symptoms GI/Abdominal: Reports: Abdominal Pain, Diarrhea, Decreased Appetite, Nausea : Reports: No Symptoms Musculoskeletal: Reports: No Symptoms Skin: Reports: No Symptoms Neurological: Reports: No Symptoms ED EXAM, GI/ABD - Physical Exam Exam: See Below Text/Narrative:: pt arrived with pain in upper abdoman. She has had diarrhea for the past 1.5 weeks. Exam Limited By: No Limitations General Appearance: Alert, Mild Distress Ears: Normal TMs Nose: Normal Inspection Throat/Mouth: Normal Inspection Head: Atraumatic Neck: Normal Inspection Respiratory/Chest: No Respiratory Distress Cardiovascular: Regular Rate, Rhythm GI/Abdominal Exam: Other ( tender in the upper abdoman. She does have 2 small hernias. ) (Female) Exam: Deferred Rectal (Female) Exam: Deferred Back Exam: Normal Inspection Extremities: Normal Inspection Neurological: Alert, Oriented, Normal Cognition Psychiatric: Normal Affect Course - Vital Signs Last Recorded V/S: Last Vital Signs Temp 36.7 C 10/23/17 09:46 Pulse 83 10/23/17 09:46 Resp 14 10/23/17 09:46 BP 144/87 H 10/23/17 09:46 Pulse Ox 97 10/23/17 09:46 - Orders/Labs/Meds Orders: Active Orders 24 hr Category Date Time Status CLOSTRIDIUM DIFFICILE BY PCR [RM] Stat Lab 10/23/17 10:33 Ordered UA W/MICROSCOPIC [URIN] Urgent Lab 10/23/17 10:16 Ordered Iopamidol [Isovue-300 (61%)] Med 10/23/17 11:36 Active 100 ml IV . DIRECTED PRN Sodium Chloride 0.9% [Normal Saline] 1,000 ml Med 10/23/17 10:15 Active IV ASDIRECTED Sodium Chloride 0.9% [Normal Saline] 80 ml Med 10/23/17 11:45 Active IV ASDIRECTED Medication Orders Sodium Chloride (Normal Saline) 1,000 mls @ 999 mls/hr IV ASDIRECTED IRA Last Admin: 10/23/17 10:23 Dose: 999 mls/hr Sodium Chloride (Normal Saline) 80 mls @ 3.5 mls/sec IV ASDIRECTED [facility] Last Admin: 10/23/17 11:48 Dose: 3.5 mls/sec Iopamidol (Isovue-300 (61%)) 100 ml IV . DIRECTED PRN PRN Reason: RADIOLOGY EXAM Stop: 10/24/17 11:37 Last Admin: 10/23/17 11:48 Dose: 100 ml Labs: Laboratory Tests 10/23/17 10/23/17 10/23/17 Range/Units 10:16 10:17 10:17 WBC 5.5 (4.5-11.0) K/uL RBC 4.46 (3.30-5.50) M/uL Hgb 13.7 (12.0-15.0) g/dL Hct 41.0 (36.0-48.0) % MCV 92 (80-98) fL MCH 31 (27-31) pg MCHC 33 (32-36) % Plt Count 211 (150-400) K/uL Neut % (Auto) 57 (36-66) % Lymph % (Auto) 28 (24-44) % [place] % (Auto) 7 H (2-6) % Eos % (Auto) 7 H (2-4) % Baso % (Auto) 1 (0-1) % Sodium 140 (140-148) mmol/L Potassium 4.1 (3.6-5.2) mmol/L Chloride 104 (100-108) mmol/L Carbon Dioxide 28 (21-32) mmol/L Anion Gap 7.6 (5.0-14.0) mmol/L BUN 11 D (7-18) mg/dL Creatinine 1.1 H (0.6-1.0) mg/dL Est Cr Clr Drug Dosing 51.08 mL/min Estimated GFR (MDRD) 54 L (>60) Glucose 94 (74-106) mg/dL Calcium 8.4 L (8.5-10.1) mg/dL Total Bilirubin 0.3 (0.2-1.0) mg/dL AST 216 H D (15-37) U/L ALT 248 H (12-78) U/L Alkaline Phosphatase 183 H D (46-116) U/L C-Reactive Protein 0.57 H (0.0-0.3) mg/dL Total Protein 6.3 L (6.4-8.2) g/dL Albumin 3.3 L (3.4-5.0) g/dL Globulin 3.0 (2.3-3.5) g/dL Albumin/Globulin Ratio 1.1 L (1.2-2.2) Lipase (73-393) U/L Urine Color Yellow Urine Appearance Slightly cloudy Urine pH 6.0 (4.5-8.0) Ur Specific [place] 1.020 (1.008-1.030) Urine Protein Negative (NEGATIVE) mg/dL Urine Glucose (UA) Normal (NEGATIVE) mg/dL Urine Ketones Negative (NEGATIVE) mg/dL Urine Occult Blood Negative (NEGATIVE) Urine Nitrite Negative (NEGATIVE) Urine Bilirubin Negative (NEGATIVE) Urine Urobilinogen Normal (NORMAL) mg/dL Ur Leukocyte Esterase Negative (NEGATIVE) Urine RBC 0-5 (0-5) Urine WBC Not seen (0-5) Ur Epithelial Cells Many Amorphous Sediment Not seen Urine Bacteria Rare Urine Mucus Rare 10/23/17 Range/Units 10:17 WBC (4.5-11.0) K/uL RBC (3.30-5.50) M/uL Hgb (12.0-15.0) g/dL Hct (36.0-48.0) % MCV (80-98) fL MCH (27-31) pg MCHC (32-36) % Plt Count (150-400) K/uL Neut % (Auto) (36-66) % Lymph % (Auto) (24-44) % [place] % (Auto) (2-6) % Eos % (Auto) (2-4) % Baso % (Auto) (0-1) % Sodium (140-148) mmol/L Potassium (3.6-5.2) mmol/L Chloride (100-108) mmol/L Carbon Dioxide (21-32) mmol/L Anion Gap (5.0-14.0) mmol/L BUN (7-18) mg/dL Creatinine (0.6-1.0) mg/dL Est Cr Clr Drug Dosing mL/min Estimated GFR (MDRD) (>60) Glucose (74-106) mg/dL Calcium (8.5-10.1) mg/dL Total Bilirubin (0.2-1.0) mg/dL AST (15-37) U/L ALT (12-78) U/L Alkaline Phosphatase (46-116) U/L C-Reactive Protein (0.0-0.3) mg/dL Total Protein (6.4-8.2) g/dL Albumin (3.4-5.0) g/dL Globulin (2.3-3.5) g/dL Albumin/Globulin Ratio (1.2-2.2) Lipase 157 (73-393) U/L Urine Color Urine Appearance Urine pH (4.5-8.0) Ur Specific [place] (1.008-1.030) Urine Protein (NEGATIVE) mg/dL Urine Glucose (UA) (NEGATIVE) mg/dL Urine Ketones (NEGATIVE) mg/dL Urine Occult Blood (NEGATIVE) Urine Nitrite (NEGATIVE) Urine Bilirubin (NEGATIVE) Urine Urobilinogen (NORMAL) mg/dL Ur Leukocyte Esterase (NEGATIVE) Urine RBC (0-5) Urine WBC (0-5) Ur Epithelial Cells Amorphous Sediment Urine Bacteria Urine Mucus Meds: Medications Generic Name Dose Route Start Last Admin Trade Name Freq PRN Reason Stop Dose Admin Sodium Chloride 1,000 mls @ 999 mls/hr 10/23/17 10:15 10/23/17 10:23 Normal Saline IV 999 mls/hr ASDIRECTED IRA Administration Sodium Chloride 80 mls @ 3.5 mls/sec 10/23/17 11:45 10/23/17 11:48 Normal Saline IV 3.5 mls/sec ASDIRECTED IRA Administration Iopamidol 100 ml 10/23/17 11:36 10/23/17 11:48 Isovue-300 (61%) IV 10/24/17 11:37 100 ml . DIRECTED PRN Administration RADIOLOGY EXAM Discontinued Medications Generic Name Dose Route Start Last Admin Trade Name Arun PRN Reason Stop Dose Admin Hydromorphone HCl 0.5 mg 10/23/17 10:43 10/23/17 10:48 Dilaudid IVPUSH 10/23/17 10:44 0.5 mg ONETIME ONE Administration Ketorolac Tromethamine 30 mg 10/23/17 12:15 10/23/17 12:27 Toradol IVPUSH 10/23/17 12:16 30 mg ONETIME ONE Administration Ondansetron HCl 4 mg 10/23/17 10:43 10/23/17 10:49 Zofran IVPUSH 10/23/17 10:44 4 mg ONETIME ONE Administration - Re-Assessments/Exams Free Text/Narrative Re-Assessment/Exam: 10/23/17 12:35 Pt was found to have elvated liver enzymes. She does not give a history of excessive etoh use. She had an US of the common duct which was not wide and no stones present. She had a cat scan of the abdoman which did not show acute findings. She did not have any stools during the time she was here. Her wbc was normal. Departure - Departure Time of Disposition: 12:37 Disposition: Home, Self-Care 01 Condition: Fair Clinical Impression: Elevated liver enzymes, Diarrhea Abdominal pain Qualifiers: Abdominal location: generalized Qualified Code(s): R10.84 - Generalized abdominal pain - Discharge Information Referrals: Jassi March PA [Primary Care Provider] - Forms: ED Department Discharge Care Plan Goals: rtc for a gastro, appt with Jassi Ulloa in follow up, If diarrhea is persistent she should have stools for clost and culture, Use imodium 2 tabs after each loose stool, prilosec 20mg daily - My Orders Last 24 Hours: My Active Orders 10/23/17 10:15 Sodium Chloride 0.9% [Normal Saline] 1,000 ml IV ASDIRECTED 10/23/17 10:16 UA W/MICROSCOPIC [URIN] Urgent 10/23/17 10:33 CLOSTRIDIUM DIFFICILE BY PCR [RM] Stat 10/23/17 11:36 Iopamidol [Isovue-300 (61%)] 100 ml IV . DIRECTED PRN 10/23/17 11:45 Sodium Chloride 0.9% [Normal Saline] 80 ml IV ASDIRECTED - Assessment/Plan Last 24 Hours: My Active Orders 10/23/17 10:15 Sodium Chloride 0.9% [Normal Saline] 1,000 ml IV ASDIRECTED 10/23/17 10:16 UA W/MICROSCOPIC [URIN] Urgent 10/23/17 10:33 CLOSTRIDIUM DIFFICILE BY PCR [RM] Stat 10/23/17 11:36 Iopamidol [Isovue-300 (61%)] 100 ml IV . DIRECTED PRN 10/23/17 11:45 Sodium Chloride 0.9% [Normal Saline] 80 ml IV ASDIRECTED
[2017-10-23] MEDS ORDERED: Sodium Chloride 0.9% 1,000 ML IV SCH (10:15)
[2017-10-23] MEDS ORDERED: Ondansetron 4 MG/2 ML SDV IVPUSH ONE (10:43)
[2017-10-23] MEDS ORDERED: HYDROmorphone 0.5 MG/0.5 ML Syringe IVPUSH ONE (10:43)
[2017-10-23] MEDS ORDERED: Iopamidol 612 MG/ML 100 ML Bottle IV PRN (11:36)
[2017-10-23] MEDS ORDERED: Sodium Chloride 0.9% 80 ML IV SCH (11:45)
--- NOTE | 2017-10-23 11:59 | US ---
Abdomen Ltd HISTORY: elevated liver enzymes, post andrzej FINDINGS: The liver appears within normal limits in size and echogenicity with no focal parenchymal abnormality identified. Gallbladder is surgically absent. Biliary ducts are not dilated. Common bile duct measur es 5.4 mm in diameter. The pancreas is obscured by bowel gas. Right kidney is borderline small measuring 8.4 x 4.2 x 3.8 cm. No right renal mass mass or hydronephrosis is seen. Inferior vena cava is unremarkable. Normal hepat opedal flow is seen in the portal vein. IMPRESSION: Gallbladder is surgically absent. No mass or abnormal fluid collections are seen in the gallbladder b ed. No biliary duct dilatation is identified. Gallbladder is obscured by bowel gas and could not be i yong. No other sonographic abnormality of the right upper quadrant is identified. Report was called to Dr. Villalpando in the Emergency Department at 1145 hours.
--- NOTE | 2017-10-23 12:08 | CT ---
Abdomen Pelvis w Cont HISTORY: upper abdominal pain. Axial spiral enhanced CT scan of the abdomen and pelvis was obtained using IV contrast only. Coronal reconstructions were obtained. Auto dosage and iterative reconstruction techniques were employed. COMPARISON: CT abdomen and pelvis, 06/18/2017. FINDINGS: Heart size is within normal limits. There is mild linear atelectasis posteriorly at the annmarie g bases. Small hiatal hernia is unchanged. No focal abnormality of the liver or spleen is identified. Gallbladder is surgically absent. No biliary duct dilatation is identified. I see no focal abnormali ty of the pancreas, adrenal glands, or kidneys. No pelvic mass or abnormal fluid collections are seen. There is no pelvic, retroperitoneal, or mesent ольга adenopathy. No free air or free fluid is noted. Small bowel loops are nondistended. No colon abn ormality is seen. I see no signs of appendicitis or diverticulitis. No lytic or blastic bony lesion i s seen. Abdominal aorta is unremarkable. IMPRESSION: Old cholecystectomy changes are noted. No acute intra-abdominal or pelvic abnormalities i dentified. Small hiatal hernia. Overall stable appearance of the abdomen and pelvis compared with . Report was called to Dr. Villalpando in the Emergency Department at 1202 hours.
[2017-10-23] MEDS ORDERED: Ketorolac 30 MG/ML SDV IVPUSH ONE (12:15)
== END 2017-10-23 12:51 | disposition home or self-care (01) ==
LOC: JP.ED 09:31
DX: R10.84 Generalized abdominal pain (principal); R19.7 Diarrhea, unspecified; R74.8 Abnormal levels of other serum enzymes; J45.909 Unspecified asthma, uncomplicated; E66.9 Obesity, unspecified; F17.210 Nicotine dependence, cigarettes, uncomplicated; Z88.8 Allergy status to other drugs, medicaments and biological substances; Z88.5 Allergy status to narcotic agent; Z79.899 Other long term (current) drug therapy
CPT/HCPCS: 36415; 74177; 76705; 80053; 81001; 83690; 85025; 86140; 96361; 96374; 96375; 99284; J1170; J1885; J2405; J7030; J7040; Q9967

== ENCOUNTER 2017-12-22 06:53 | Day surgery (SDC) | payer OTHER ==
[2017-12-22] MEDS ORDERED: Propofol 200 MG/20 ML SDV ONE ×3 (07:04→08:47)
[2017-12-22] MEDS ORDERED: fentaNYL 100 MCG/2 ML SDV ONE (07:04)
[2017-12-22] MEDS ORDERED: Midazolam 1 MG/ML 2 ML SDV ONE (07:04)
[2017-12-22] MEDS ORDERED: Lactated Ringers 1,000 ML IV SCH (08:00)
[2017-12-22] MEDS ORDERED: Dexamethasone 4 MG/ML SDV ONE (08:19)
[2017-12-22] MEDS ORDERED: Ondansetron 4 MG/2 ML SDV ONE (08:19)
[2017-12-22 10:07] VITALS: BP 118/83
--- NOTE | 2017-12-23 11:12 | OR ---
DATE OF PROCEDURE: 12/22/2017 PREOPERATIVE DIAGNOSIS: Upper abdominal pain and diarrhea. POSTOPERATIVE DIAGNOSIS: Upper abdominal pain, minimal gastritis, diarrhea. PROCEDURE: Esophagogastroduodenoscopy with antral biopsies for CLOtest and sent for pathology to look for Helicobacter pylori. Colonoscopy to the cecum with random colonic biopsies. SURGEON: James Mccabe MD. ANESTHESIA: IV anesthesia with monitored anesthesia care. INDICATION: This 47-year-old white female is referred for upper and lower endoscopy. Indication for upper endoscopy is upper abdominal pain. She does have a history of a Massiel fundoplication done back in 2004, apparently in [place], [place]. Indication for colonoscopy is chronic diarrhea. I counseled her for upper and lower endoscopy with possible biopsy and/or polypectomy including risks and alternatives, and she gave her informed consent to proceed. DESCRIPTION OF PROCEDURE: The patient was placed in the left lateral decubitus position. IV anesthesia was administered by the Anesthesia Service. Time-out was held. The flexible video Olympus upper endoscope was passed through her mouth, down her esophagus, and into her stomach. The scope was easily passed through the pylorus into the duodenum reaching its third portion. The scope was then slowly withdrawn, examining the mucosa throughout. The duodenal mucosa appeared entirely unremarkable. The scope was brought up through the pylorus into the antrum. There was possibly some real mild or minimal inflammation present. With her complaint of upper abdominal pain, we obtained antral biopsies for CLOtest and sent for pathology to look for Helicobacter pylori. The scope was retroflexed. The proximal stomach appeared unremarkable. The scope was straightened and brought up through the GE junction. She had a prior Massiel fundoplication. The GE junction appeared unremarkable. The scope was then brought up through the unremarkable-appearing esophagus and was removed. Next, a rectal exam was performed, which was unremarkable. The flexible video Olympus colonoscope was introduced through her anus, up her rectum, and out her colon all the way to the cecum. The prep was fairly poor. There was a lot of fluid present, and unfortunately, had solids in it which when we tried to aspirate the fluid free, plugged the scope multiple times. We were unable to clear all the residual material from the colon. Once the cecum was reached, the scope was slowly withdrawn, examining the mucosa throughout. The visualized mucosa all appeared unremarkable. We did obtain random colonic biopsies throughout the entire colon and rectum. The scope was retroflexed in the rectum with the distal rectum appearing unremarkable. The scope was straightened and removed. She tolerated the procedure well. James Mccabe MD /[id number] MTDD
== END 2017-12-22 10:00 | disposition home or self-care (01) ==
LOC: JP.SDS 06:53
PROVIDERS: ATTEND Surgery
DX: K29.70 Gastritis, unspecified, without bleeding (principal); R19.7 Diarrhea, unspecified; Z88.5 Allergy status to narcotic agent; Z88.8 Allergy status to other drugs, medicaments and biological substances
CPT/HCPCS: 87081; 88305; J1100; J2250; J2405; J2704; J3010; J7120

== ENCOUNTER 2020-02-19 00:57 | Emergency (ER) | payer OTHER ==
[2020-02-19] MEDS ORDERED: Sodium Chloride 0.9% 10 ML Syringe FLUSH PRN ×2 (01:40→02:38)
[2020-02-19] MEDS ORDERED: fentaNYL 100 MCG/2 ML SDV IVPUSH ONE (01:42)
[2020-02-19] MEDS ORDERED: Ondansetron 4 MG/2 ML SDV IVPUSH ONE (01:42)
[2020-02-19] MEDS ORDERED: Lactated Ringers 1,000 ML IV SCH (01:45)
--- NOTE | 2020-02-19 01:45 | EDM.PDOC ---
ED HPI GENERAL MEDICAL PROBLEM - General Chief Complaint: Abdominal Pain Stated Complaint: ABD PAIN RT SIDE Time Seen by Provider: 02/19/20 01:36 Source of Information: Reports: Patient, RN Notes Reviewed History Limitations: Reports: No Limitations - History of Present Illness INITIAL COMMENTS - FREE TEXT/NARRATIVE: 49-year-old female presents emergency department a complaint of right lower quadrant abdominal pain, states had the pain for about 24 hours does feel nauseated no problems with bowel movements does have a history of Massiel in combination with cholecystectomy and hysterectomy appendix is still present no fever Right Lower Abdominal Pain Score (Numeric/FACES): 5 - Related Data Allergies Allergy/AdvReac Type Severity Reaction Status Date / Time prochlorperazine maleate Allergy Other Verified 02/19/20 01:14 [From Compazine] codeine AdvReac Stomach Verified 02/19/20 01:14 Ache metoclopramide HCl AdvReac Hallucinati Verified 02/19/20 01:14 [From Reglan] ons Home Meds: Home Meds Rizatriptan Benzoate [Maxalt] 5 mg PO ASDIRECTED PRN 02/14/16 [History] Albuterol [IJD: Albuterol HFA] 1 - 2 puff IH Q4H PRN 02/16/16 [History] ClonazePAM [KlonoPIN] 0.5 mg PO BID PRN 06/18/17 [History] busPIRone HCl [busPIRone] 15 mg PO TID 06/18/17 [History] Ondansetron [Zofran ODT] 8 mg PO Q4H PRN 10/23/17 [History] Budesonide [Pulmicort] 1 ampule INH BID PRN 12/18/17 [History] Eszopiclone [Lunesta] 3 mg PO ASDIRECTED 12/18/17 [History] DULoxetine [Cymbalta] 60 mg PO BEDTIME 02/19/20 [History] Gabapentin [Neurontin] 100 mg PO TID PRN 02/19/20 [History] lamoTRIgine [Lamotrigine] 100 mg PO BEDTIME 02/19/20 [History] Past Medical History HEENT History: Reports: Allergic Rhinitis, Impaired Vision Other HEENT History: wears glasses Cardiovascular History: Reports: High Cholesterol Respiratory History: Reports: Asthma Gastrointestinal History: Reports: Chronic Diarrhea, GERD, Hiatal Hernia Other Gastrointestinal History: reports has aproxx 4 loose stools a day sometimes more sometimes less Genitourinary History: Reports: UTI, Recurrent, Other (See Below) Other Genitourinary History: IC bladder [employer]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[employer] MANAGER 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: Reports: , Prolapsed Uterus Musculoskeletal History: Reports: Fracture, Fibromyalgia Other Musculoskeletal History: hx tibia on rt leg and nose fractures Neurological History: Reports: Migraines Psychiatric History: Reports: Anxiety, Depression, Psych Hospitalization(s), Suicide Attempt, Suicidal Ideation Endocrine/Metabolic History: Reports: Obesity/BMI 30+ Dermatologic History: Reports: Other (See Below) Other Dermatologic History: rosacea - Infectious Disease History Infectious Disease History: Reports: Chicken Pox, Helicobacter Pylori, Influenza, Shingles - Past Surgical History HEENT Surgical History: Reports: Oral Surgery Cardiovascular Surgical History: Reports: None GI Surgical History: Reports: Cholecystectomy, Colonoscopy, EGD, Hernia Repair/Other, Massiel Fundoplication Female Surgical History: Reports: Hysterectomy Endocrine Surgical History: Reports: None Neurological Surgical History: Reports: None Musculoskeletal Surgical History: Reports: None Dermatological Surgical History: Reports: None Social & Family History - Family History Family Medical History: Noncontributory - Tobacco Use Smoking Status *Q: Current Every Day Smoker Years of Tobacco use: 12 Packs/Tins Daily: 1 - Caffeine Use Caffeine Use: Reports: Coffee, Soda - Recreational Drug Use Recreational Drug Use: No - Living Situation & Occupation Living situation: Reports: with Significant Other Occupation: Disabled (disabled due to anxiety and depression lives with Boyfriend and his Father by [place], [place].) ED ROS GENERAL - Review of Systems Review Of Systems: See Below Constitutional: Denies: Fever, Chills HEENT: Reports: No Symptoms Respiratory: Reports: No Symptoms Cardiovascular: Reports: No Symptoms GI/Abdominal: Reports: Abdominal Pain, Diarrhea, Nausea. Denies: Constipation, Vomiting : Reports: No Symptoms Musculoskeletal: Reports: No Symptoms Skin: Reports: No Symptoms Neurological: Reports: No Symptoms ED EXAM, GI/ABD - Physical Exam Exam: See Below Exam Limited By: No Limitations General Appearance: Alert, WD/WN, No Apparent Distress Respiratory/Chest: No Respiratory Distress, Lungs Clear, Normal Breath Sounds, No Accessory Muscle Use, Chest Non-Tender Cardiovascular: Regular Rate, Rhythm, No Murmur GI/Abdominal Exam: Soft, No Organomegaly, No Distention, Tender (Right lower quadrant), Abnormal Bowel Sounds (Bowel sounds decreased) Course - Vital Signs Last Recorded V/S: Last Vital Signs Temp 98.1 F 02/19/20 01:22 Pulse 91 02/19/20 02:10 Resp 16 02/19/20 02:10 BP 145/92 H 02/19/20 02:10 Pulse Ox 96 02/19/20 02:10 - Orders/Labs/Meds Orders: Active Orders 24 hr Category Date Time Status Peripheral IV Care [RC] . DIRECTED Care 02/19/20 01:40 Active Lactated Ringers [Ringers, Lactated] 1,000 ml Med 02/19/20 01:45 Active IV ASDIRECTED Sodium Chloride 0.9% [Normal Saline] 77 ml Med 02/19/20 02:45 Active IV ASDIRECTED Sodium Chloride 0.9% [Saline Flush] Med 02/19/20 01:40 Active 10 ml FLUSH ASDIRECTED PRN Sodium Chloride 0.9% [Saline Flush] Med 02/19/20 02:38 Active 10 ml FLUSH ONETIME PRN Peripheral IV Insertion Adult [OM.PC] Urgent Oth 02/19/20 01:40 Ordered Medication Orders Lactated Ringer's (Ringers, Lactated) 1,000 mls @ 999 mls/hr IV ASDIRECTED [facility] Last Admin: 02/19/20 02:04 Dose: 999 mls/hr Documented by: ANAYAIJEA Sodium Chloride (Normal Saline) 77 mls @ 3.5 mls/sec IV ASDIRECTED [facility] Last Admin: 02/19/20 02:57 Dose: 3.5 mls/sec Documented by: NIA Sodium Chloride (Saline Flush) 10 ml FLUSH ASDIRECTED PRN PRN Reason: Keep Vein Open Last Admin: 02/19/20 02:04 Dose: 10 ml Documented by: ANAYAIJEA Sodium Chloride (Saline Flush) 10 ml FLUSH ONETIME PRN PRN Reason: per radiology protocol Last Admin: 02/19/20 02:56 Dose: 10 ml Documented by: NIA Labs: Laboratory Tests 02/19/20 02/19/20 02/19/20 Range/Units 01:40 01:45 01:45 WBC 10.4 (4.5-11.0) K/uL RBC 4.36 (3.30-5.50) M/uL Hgb 12.6 (12.0-15.0) g/dL Hct 38.8 (36.0-48.0) % MCV 89 (80-98) fL MCH 29 (27-31) pg MCHC 33 (32-36) % Plt Count 228 (150-400) K/uL Neut % (Auto) 54 (36-66) % Lymph % (Auto) 33 (24-44) % [place] % (Auto) 7 H (2-6) % Eos % (Auto) 6 H (2-4) % Baso % (Auto) 1 (0-1) % Sodium 142 (140-148) mmol/L Potassium 3.8 (3.6-5.2) mmol/L Chloride 106 (100-108) mmol/L Carbon Dioxide 27 (21-32) mmol/L Anion Gap 9.5 (5.0-14.0) mmol/L BUN 8 (7-18) mg/dL Creatinine 1.0 (0.6-1.0) mg/dL Est Cr Clr Drug Dosing 55.01 mL/min Estimated GFR (MDRD) 59 L (>60) Glucose 98 (74-106) mg/dL Lactic Acid (0.4-2.0) mmol/L Calcium 8.2 L (8.5-10.1) mg/dL Total Bilirubin 0.3 (0.2-1.0) mg/dL AST 17 D (15-37) U/L ALT 22 D (12-78) U/L Alkaline Phosphatase 105 (46-116) U/L Total Protein 6.2 L (6.4-8.2) g/dL Albumin 3.3 L (3.4-5.0) g/dL Globulin 2.9 (2.3-3.5) g/dL Albumin/Globulin Ratio 1.1 L (1.2-2.2) Lipase 213 (73-393) U/L Urine Color Yellow (YELLOW) Urine Appearance Clear (CLEAR) Urine pH 6.0 (5.0-8.0) Ur Specific [place] 1.025 (1.008-1.030) Urine Protein Negative (NEGATIVE) mg/dL Urine Glucose (UA) Negative (NEGATIVE) mg/dL Urine Ketones Negative (NEGATIVE) mg/dL Urine Occult Blood Negative (NEGATIVE) Urine Nitrite Negative (NEGATIVE) Urine Bilirubin Negative (NEGATIVE) Urine Urobilinogen 0.2 (0.2-1.0) EU/dL Ur Leukocyte Esterase Negative (NEGATIVE) Urine RBC 0-5 (0-5) Urine WBC 0-5 (0-5) Ur Epithelial Cells Few Amorphous Sediment Rare Urine Bacteria Few Urine Mucus Not seen 02/19/20 Range/Units 01:45 WBC (4.5-11.0) K/uL RBC (3.30-5.50) M/uL Hgb (12.0-15.0) g/dL Hct (36.0-48.0) % MCV (80-98) fL MCH (27-31) pg MCHC (32-36) % Plt Count (150-400) K/uL Neut % (Auto) (36-66) % Lymph % (Auto) (24-44) % [place] % (Auto) (2-6) % Eos % (Auto) (2-4) % Baso % (Auto) (0-1) % Sodium (140-148) mmol/L Potassium (3.6-5.2) mmol/L Chloride (100-108) mmol/L Carbon Dioxide (21-32) mmol/L Anion Gap (5.0-14.0) mmol/L BUN (7-18) mg/dL Creatinine (0.6-1.0) mg/dL Est Cr Clr Drug Dosing mL/min Estimated GFR (MDRD) (>60) Glucose (74-106) mg/dL Lactic Acid 1.1 (0.4-2.0) mmol/L Calcium (8.5-10.1) mg/dL Total Bilirubin (0.2-1.0) mg/dL AST (15-37) U/L ALT (12-78) U/L Alkaline Phosphatase (46-116) U/L Total Protein (6.4-8.2) g/dL Albumin (3.4-5.0) g/dL Globulin (2.3-3.5) g/dL Albumin/Globulin Ratio (1.2-2.2) Lipase (73-393) U/L Urine Color (YELLOW) Urine Appearance (CLEAR) Urine pH (5.0-8.0) Ur Specific [place] (1.008-1.030) Urine Protein (NEGATIVE) mg/dL Urine Glucose (UA) (NEGATIVE) mg/dL Urine Ketones (NEGATIVE) mg/dL Urine Occult Blood (NEGATIVE) Urine Nitrite (NEGATIVE) Urine Bilirubin (NEGATIVE) Urine Urobilinogen (0.2-1.0) EU/dL Ur Leukocyte Esterase (NEGATIVE) Urine RBC (0-5) Urine WBC (0-5) Ur Epithelial Cells Amorphous Sediment Urine Bacteria Urine Mucus Meds: Medications Generic Name Dose Route Start Last Admin Trade Name Arun PRN Reason Stop Dose Admin Lactated Ringer's 1,000 mls @ 999 mls/hr 02/19/20 01:45 02/19/20 02:04 Ringers, Lactated IV 999 mls/hr ASDIRECTED [facility] Administration Sodium Chloride 77 mls @ 3.5 mls/sec 02/19/20 02:45 02/19/20 02:57 Normal Saline IV 3.5 mls/sec ASDIRECTED [facility] Administration Sodium Chloride 10 ml 02/19/20 01:40 02/19/20 02:04 Saline Flush FLUSH 10 ml ASDIRECTED PRN Administration Keep Vein Open Sodium Chloride 10 ml 02/19/20 02:38 02/19/20 02:56 Saline Flush FLUSH 10 ml ONETIME PRN Administration per radiology protocol Discontinued Medications Generic Name Dose Route Start Last Admin Trade Name Arun PRN Reason Stop Dose Admin Fentanyl 50 mcg 02/19/20 01:42 02/19/20 02:04 Sublimaze IVPUSH 02/19/20 01:43 50 mcg ONETIME ONE Administration Hydromorphone HCl 1 mg 02/19/20 03:11 02/19/20 03:19 Dilaudid IVPUSH 02/19/20 03:12 1 mg ONETIME ONE Administration Iopamidol 123 ml 02/19/20 02:38 02/19/20 02:57 Isovue-300 (61%) IV 02/19/20 02:39 123 ml ONETIME ONE Administration Ondansetron HCl 4 mg 02/19/20 01:42 02/19/20 02:04 Zofran IVPUSH 02/19/20 01:43 4 mg ONETIME ONE Administration Departure - Departure Time of Disposition: 03:51 Disposition: Home, Self-Care 01 Condition: Fair Clinical Impression: Functional constipation - Discharge Information Instructions: Constipation, Adult Referrals: Anish Brantley NP [Primary Care Provider] - Forms: ED Department Discharge Additional Instructions: Continue regular medications, try the colonoscopy prep with MiraLAX, please followup with your primary care provider in 3-5 days if not better, please call return to the emergency department with worsening of symptoms. Sepsis Event Note (ED) - Evaluation Sepsis Screening Result: No Definite Risk - Focused Exam Vital Signs: Vital Signs Temp Pulse Resp BP Pulse Ox 02/19/20 02:10 91 16 145/92 H 96 02/19/20 01:22 98.1 F 90 17 148/94 H 98 02/19/20 01:21 98.1 F 90 17 148/94 H 98 - My Orders Last 24 Hours: My Active Orders 02/19/20 01:40 Peripheral IV Care [RC] . DIRECTED Sodium Chloride 0.9% [Saline Flush] 10 ml FLUSH ASDIRECTED PRN Peripheral IV Insertion Adult [OM.PC] Urgent 02/19/20 01:45 Lactated Ringers [Ringers, Lactated] 1,000 ml IV ASDIRECTED 02/19/20 02:38 Sodium Chloride 0.9% [Saline Flush] 10 ml FLUSH ONETIME PRN 02/19/20 02:45 Sodium Chloride 0.9% [Normal Saline] 77 ml IV ASDIRECTED - Assessment/Plan Last 24 Hours: My Active Orders 02/19/20 01:40 Peripheral IV Care [RC] . DIRECTED Sodium Chloride 0.9% [Saline Flush] 10 ml FLUSH ASDIRECTED PRN Peripheral IV Insertion Adult [OM.PC] Urgent 02/19/20 01:45 Lactated Ringers [Ringers, Lactated] 1,000 ml IV ASDIRECTED 02/19/20 02:38 Sodium Chloride 0.9% [Saline Flush] 10 ml FLUSH ONETIME PRN 02/19/20 02:45 Sodium Chloride 0.9% [Normal Saline] 77 ml IV ASDIRECTED Plan: Assessment Acuity = acute Site and laterality = functional constipation Etiology = slow transit time Manifestations = intermittent abdominal pain Location of injury = Home Lab values = CBC, CMP, urinalysis unremarkable CT scan describes diffuse colonic material present Plan Did review lab work CT scan results with her plan is to the do the colonoscopy prep follow-up primary care 3 to 5 days if not better This note was dictated using dragon voice recognition software please call with any questions on syntax or grammar.
[2020-02-19 02:10] VITALS: BP 145/92; PULSE 91
[2020-02-19] MEDS ORDERED: Iopamidol 612 MG/ML 500 ML Multipack Bottle IV ONE (02:38)
[2020-02-19] MEDS ORDERED: HYDROmorphone 1 MG/ML Syringe IVPUSH ONE (03:11)
--- NOTE | 2020-02-19 03:44 | CRLCT ---
INDICATION: Requiring pain TECHNIQUE: CT abdomen and pelvis acquired with IV contrast. COMPARISON: 10/23/2017 FINDINGS: Lower chest: Small hiatal hernia. Liver: Unremarkable. Spleen: Unremarkable. Pancreas: Unremarkable. Gallbladder and bile ducts: Cholecystectomy. Kidneys: Unremarkable. Adrenal glands: Unremarkable. GI tract: Diffuse colonic fecal retention. Appendix is not visualized. Vascular structures: Unremarkable. Lymph nodes: Unremarkable. Miscellaneous: Unremarkable. No free air or significant free fluid. Pelvic Organs: Unremarkable. Bones: Unremarkable for age. IMPRESSION: Nonvisualization of the appendix. No evidence for an inflammatory process right lower quadrant. Diffuse colonic fecal retention. Dictated by Xavier Marroquin MD @ 02/19/2020 3:42:49 AM Please note that all CT scans at this facility use dose modulation, iterative reconstruction, and/or weight-based dosing when appropriate to reduce radiation dose to as low as reasonably achievable. Dictated by: Xavier Marroquin MD @ 02/19/2020 03:42:55 (Electronically Signed)
== END 2020-02-19 05:53 | disposition home or self-care (01) ==
LOC: JP.ED 00:57
DX: K59.04 Chronic idiopathic constipation (principal); F41.9 Anxiety disorder, unspecified; F32.9 Major depressive disorder, single episode, unspecified; E66.9 Obesity, unspecified; G43.909 Migraine, unspecified, not intractable, without status migrainosus; J45.909 Unspecified asthma, uncomplicated; F17.210 Nicotine dependence, cigarettes, uncomplicated; Z88.5 Allergy status to narcotic agent; Z88.8 Allergy status to other drugs, medicaments and biological substances; Z90.49 Acquired absence of other specified parts of digestive tract; Z90.710 Acquired absence of both cervix and uterus; Z98.890 Other specified postprocedural states; Z68.33 Body mass index [BMI] 33.0-33.9, adult
CPT/HCPCS: 36415; 74177; 80053; 81001; 83605; 83690; 85025; 96374; 96375; 99284; J1170; J2405; J3010; J7050; J7120; Q9967

== ENCOUNTER 2022-04-27 00:05 | Emergency (ER) | payer OTHER ==
[2022-05-23 10:56] LABS: ESTIMATED GFR 69 mL/min (>60); TROPONIN I HIGH SENSITIVITY 5.6 pg/mL (<=60.3)
== END 2022-04-27 03:30 | disposition home or self-care (01) ==
LOC: JP.ED 00:05
DX: R51.9 Headache, unspecified (principal); R03.0 Elevated blood-pressure reading, without diagnosis of hypertension; F17.200 Nicotine dependence, unspecified, uncomplicated; Z88.8 Allergy status to other drugs, medicaments and biological substances
CPT/HCPCS: 36415; 70450; 80053; 84484; 85027; 85651; 93005; 96372; 99284

== ENCOUNTER 2023-01-10 09:44 | Day surgery (SDC) | payer OTHER ==
[~2023-01-10 09:44] MED LIST: Midazolam 1 MG/ML 2 ML SDV ONE; Propofol 200 MG/20 ML SDV ONE; fentaNYL 100 MCG/2 ML SDV ONE
[2023-01-10] MEDS ORDERED: Lactated Ringers 1,000 ML IV SCH (10:30)
[2023-01-10 13:00] VITALS: BP 105/62; PULSE 65
== END 2023-01-10 13:52 | disposition home or self-care (01) ==
LOC: JP.SDS 09:44
PROVIDERS: ATTEND Student in an Organized Health Care Education/Training Program
DX: Z12.11 Encounter for screening for malignant neoplasm of colon (principal); D12.5 Benign neoplasm of sigmoid colon; K29.50 Unspecified chronic gastritis without bleeding; K21.9 Gastro-esophageal reflux disease without esophagitis; K44.9 Diaphragmatic hernia without obstruction or gangrene; I10 Essential (primary) hypertension; F17.200 Nicotine dependence, unspecified, uncomplicated; K31.84 Gastroparesis; F90.9 Attention-deficit hyperactivity disorder, unspecified type; F41.9 Anxiety disorder, unspecified; Z79.899 Other long term (current) drug therapy; Z98.890 Other specified postprocedural states; Z88.8 Allergy status to other drugs, medicaments and biological substances
CPT/HCPCS: 43239; 45380; 88305; J2250; J2704; J3010; J7120

== ENCOUNTER 2024-12-06 08:34 | Emergency (ER) | payer OTHER, MEDICARE ==
[2024-12-06 08:47] VITALS: BP 141/97; PULSE 77
[2024-12-06 10:05] LABS: BASOPHILS ABSOLUTE AUTO 0.05 K/uL (0.00-0.10); BASOPHILS PERCENT AUTO 0.7 % (0.1-1.3); EOSINOPHILS ABSOLUTE AUTO 0.41 K/uL (0.00-0.40); EOSINOPHILS PERCENT AUTO 5.7 % (0.0-5.4); HEMATOCRIT 43.9 % (34.3-46.0); HEMOGLOBIN 14.1 g/dL (11.2-15.5); IMMATURE GRAN ABSOLUTE AUTO 0.02 K/uL (0.00-0.23); IMMATURE GRAN PERCENT AUTO 0.3 % (0.0-0.7); LYMPHOCYTES ABSOLUTE AUTO 2.12 K/uL (0.8-3.3); LYMPHOCYTES PERCENT AUTO 29.5 % (11.4-47.7); MEAN CORPUSCULAR HEMOGLOBIN 28.3 pg (31.6-35.5); MEAN CORPUSCULAR HGB CONC 32.1 g/dL (31.6-35.5); MEAN CORPUSCULAR VOLUME 88.2 fL (81.4-99.0); MONOCYTES ABSOLUTE AUTO 0.49 K/uL (0.20-0.90); MONOCYTES PERCENT AUTO 6.8 % (3.3-12.6); PLATELET COUNT,PLT 200 K/uL (130-375); RED BLOOD CELL COUNT 4.98 M/uL (3.77-5.24); WHITE BLOOD CELL COUNT,WBC 7.2 K/uL (3.2-11.0)
[2024-12-06] MEDS: Sodium Chloride 0.9% 1,000 ML IV ONE (10:07)
[2024-12-06] MEDS: Ketorolac 30 MG/ML SDV IVPUSH ONE (10:07)
[2024-12-06 10:27] LABS: ALANINE AMINOTRANSFERASE,ALT 22 U/L (12-78); ALBUMIN 3.6 g/dL (3.4-5.0); ALKALINE PHOSPHATASE 115 U/L (46-116); ANION GAP 10.3 mmol/L (5.0-14.0); ASPARTATE AMNIOTRANSFERASE,AST 13 U/L (15-37); BILIRUBIN TOTAL 0.2 mg/dL (0.2-1.0); BLOOD UREA NITROGEN,BUN 13 mg/dL (7-18); CALCIUM 9.4 mg/dL (8.5-10.1); CARBON DIOXIDE,CO2 26 mmol/L (21-32); CHLORIDE,CL 107 mmol/L (100-108); CREATININE 1.2 mg/dL (0.6-1.0); EST CRCL DRUG DOSING (CG) 43.37 mL/min; ESTIMATED GFR 54 mL/min (>60); GLUCOSE RANDOM 99 mg/dL (74-106); MAGNESIUM 2.1 mg/dL (1.8-2.4); POTASSIUM,K 4.6 mmol/L (3.6-5.2); PROTEIN TOTAL,TP 7.1 g/dL (6.4-8.2); SODIUM,NA 143 mmol/L (140-148); TROPONIN I HIGH SENSITIVITY 5.2 pg/mL (<=60.3)
[2024-12-06 11:16] LABS: APPEARANCE,URINE CLEAR (CLEAR); BILIRUBIN,URINE NEGATIVE (NEGATIVE); COLOR,URINE YELLOW (YELLOW); GLUCOSE,URINE NEGATIVE (NEGATIVE); KETONES,URINE NEGATIVE (NEGATIVE); LEUKOCYTE ESTERASE,URINE NEGATIVE (NEGATIVE); NITRITE,URINE NEGATIVE (NEGATIVE); OCCULT BLOOD,URINE NEGATIVE (NEGATIVE); PH,URINE 5.5 (5.0-8.0); PROTEIN,URINE NEGATIVE (NEGATIVE); UROBILINOGEN,URINE 0.2 EU/dL (0.2-1.0)
[2024-12-06 11:18] LABS: AMPHETAMINES SCREEN, URINE NEGATIVE (NEGATIVE); BARBITURATE SCREEN,URINE NEGATIVE (NEGATIVE); BENZODIAZEPINES SCREEN,URINE NEGATIVE (NEGATIVE); METHADONE SCREEN, URINE NEGATIVE (NEGATIVE); METHAMPHETAMINES SCREEN, URINE NEGATIVE (NEGATIVE); OXYCODONE SCREEN,URINE NEGATIVE (NEGATIVE); PROPOXYPHENE SCREEN,URINE NEGATIVE (NEGATIVE); THC SCREEN,URINE 50 NG/ML NEGATIVE (NEGATIVE)
[2024-12-06 11:21] LABS: AMORPHOUS SEDIMENT,URINE NOT SEEN; BACTERIA,URINE NOT SEEN; EPITHELIAL CELLS,URINE NOT SEEN; MUCUS,URINE NOT SEEN; RBC,URINE 0-5 (0-5); WBC,URINE 0-5 (0-5)
[2024-12-06] MEDS: Ondansetron 4 MG/2 ML SDV IVPUSH ONE (12:38)
== END 2024-12-06 12:07 | disposition home or self-care (01) ==
LOC: JP.ED 08:34
DX: I95.1 Orthostatic hypotension (principal); R51.9 Headache, unspecified; E86.0 Dehydration; J45.909 Unspecified asthma, uncomplicated; Z90.49 Acquired absence of other specified parts of digestive tract; Z90.710 Acquired absence of both cervix and uterus; Z88.5 Allergy status to narcotic agent; Z79.51 Long term (current) use of inhaled steroids; Z88.8 Allergy status to other drugs, medicaments and biological substances; Z79.899 Other long term (current) drug therapy
CPT/HCPCS: 36415; 70450; 80053; 80305; 80307; 81001; 83735; 84484; 85025; 93005; 96361; 96365; 96375; 99284; J1790; J1885; J7030